=== PATIENT | male | born 1930 | race Caucasian/White ===

== ENCOUNTER 2019-03-03 02:14 | Inpatient (IN) | payer OTHER, MEDICARE ==
[~2019-03-03] VITALS: Ht 185.4 cm; Wt 94.5 kg
[2019-03-03] VITALS (32 sets, daily range): BP systolic 108–152; BP diastolic 44–71
--- NOTE | ~2019-03-03 | P ---
[facility] [address] [place] [address] PROCEDURE REPORT Name: GUILLERMO OLIVER Rosi Room #: 210-P [facility] IN M.R.#: [id number] Admission: 03/03/19 ������������������ Attend Phys: Ashish Mayer MD Discharge: 03/07/19 ������������������ Date of : [birth year] Report #: [id number] THIS REPORT FOR: //name// CC: Juan David Mayer DIAGNOSES: 1. Implantable cardioverter defibrillator elective replacement interval. 2. Admission for sustained ventricular tachycardia. 3. Ischemic cardiomyopathy. HISTORY: The patient is an 88-year-old with history of ischemic cardiomyopathy and prior ICD implantation, who presented to the Emergency Room with palpitations and was found to have a sustained ventricular tachycardia that was below his detection zone. He was cardioverted in the Emergency Room. He was admitted to the hospital and started on amiodarone therapy. Device interrogation performed demonstrates that his device is at the elective replacement interval. He is here for ICD generator exchange. ANESTHESIA: The patient underwent MAC anesthesia with no anesthesia related complications. PROCEDURE: The patient underwent informed consent. We discussed the details of the procedure including the risks, which include but not limited to bleeding, infection, and need for possible lead revisions. He understood these risks and is willing to proceed. The patient was brought to the EP laboratory in a fasting and sedated state, prepped and draped in a sterile fashion. He received IV vancomycin for antibiotic prophylaxis. Next, lidocaine was injected at the prior incision site. Incision was made. The chronic pocket was entered and the old device was disconnected from the leads and the new device was connected, tested, and found to be functioning normally. The pocket was irrigated with vancomycin solution and closed in 2 layers using 2-0 for the deep layer, 3-0 for the middle layer. Surgical glue was placed in outer skin layer. The patient awoke neurologically and hemodynamically intact. No complications. No significant bleeding. The explanted device was a Medtronic model number [id number], serial #[id number]. This device was originally implanted back on 09/23/2011. The newly implanted device was a Medtronic model #[id number], serial #[id number]. The leads were both implanted on 09/2011. The atrial lead was a Medtronic model #4076, serial #[id number], with a P-wave of 3 millivolts, pacing impedance 418 ohms and the pacing threshold 0.5 volts at 0.4 milliseconds. The RV lead was a Medtronic model #6947, serial #[id number] with R-wave of 6 millivolts, pacing impedance of 361 ohms, pacing threshold 0.5 volts at 0.4 milliseconds and stable shock impedances. His device is programmed AAIR/DDDR. The VT and VF zones were programmed to their original settings. [address] [address] PROCEDURE REPORT Name: GUILLERMO OLIVER Room #: 210-P [facility] IN .R.#: [id number] Admission: 03/03/19 ������������������ Attend Phys: Ashish Mayer MD Discharge: 03/07/19 ������������������ Date of : [birth year] Report #: [id number] CONCLUSIONS: 1. Successful ICD generator exchange. 2. Satisfactory atrial and ventricular pacing and sensing thresholds. ��������������������������������������������� ���������������������������������������� By: ��������������������������������������������� 1448 0254 Roverto Donald MD /nt
[~2019-03-03 02:14] MED LIST: ASPIRIN81 M2 PO; BENICAR HCT 201 EACH PO; CLARITIN10 M2 PO; CLARITIN10 MG PO; COZAAR 25 MG TA25 M1 PO; DOXYCYCLINE 10100 MG PO; ELIQUIS5 MG PO; FLONASE 0.05%50 MCG NASAL; FLOVENT HFA 1110 MCG INH; HYDROCODON-ACE1 EAC7; LOMOTIL TABLET1 EACH PO; LOPRESSOR100 MG PO; LOPRESSOR50 PO; MOBIC7.5 MG PO; MUCINEX TA600 MG/TA2 PO; MUCINEX600 MG PO; OSELB75 PO; PACERONE 200 M200 M1 PO; PREDNISONE 10 M10 MG PO; SINGULAIR 10 MG10 M1 PO; TYLENOL EX-STR500 M2 PO; TYLENOL325 MG PO; ZOCOR 20 MG TAB20 M1 PO
[2019-03-03] MEDS ORDERED: TYLENOL EXTRA500 MG PO (02:34)
[2019-03-03 02:42] LABS: ABSOLUTE NEUTROPHILS 5.9 thou/uL (1.4-8.2); BASOPHILS 0.7 % (0.0-2.0); EOSINOPHILS 0.8 % (0.0-3.0); HEMOGLOBIN 13.3 gm/dL (14.0-18.0); LYMPHOCYTES 18.4 % (24.0-44.0); MCH 31.1 pg (26.0-34.0); MCHC 33.4 g/dL (28.0-37.0); MCV 93.2 fL (80.0-100.0); MONOCYTES 9.7 % (1.0-8.0); PLATELET COUNT 132 thou/uL (150-400); POLYS 70.4 % (36.0-66.0); RBC 4.28 mil/uL (4.50-6.00); RDW 14.8 % (10.5-14.5); WBC 8.4 thou/uL (4.0-11.0)
[2019-03-03 02:46] LABS: CREATININE 1.8 mg/dL (0.7-1.3); POTASSIUM 4.2 mmol/L (3.5-5.1)
[2019-03-03 02:56] LABS: TROPONIN-I 0.42 ng/mL (<0.06)
[2019-03-03 08:06] LABS: CALCIUM 8.2 mg/dL (8.5-10.1); CREATININE 1.7 mg/dL (0.7-1.3); POTASSIUM 4.6 mmol/L (3.5-5.1)
[2019-03-03 08:14] LABS: TROPONIN-I 0.47 ng/mL (<0.06)
--- NOTE | 2019-03-03 16:13 | 2DMMODE ---
[facility] [address] [place] [address] 2 D/M-MODE ECHOCARDIOGRAM Name: GUILLERMO OLIVER Room #: 237-P [facility] M.R.#: [id number] ������������� Admission: 03/03/19 ������������� Attend Phys: Angelica Andrews Discharge: ��� ������������� ��� Date of : [birth year] Date of Service: 03/03/19 1613 �� Report #: [id number] �������� ��������������������������������������������[id number] THIS REPORT FOR: //name// APPROVED REPORT Study performed: 03/03/2019 09:45:42 EXAM: Comprehensive 2D, Doppler, and color-flow Echocardiogram Patient Location: Bedside Room #: 237 Status: on-call BSA: 2.20 HR: 62 bpm BP: 130/61 mmHg Rhythm: NSR Other Information Study Quality: Adequate Risk Factors: Cardiac Risk Factors: HTN Indications Pacemaker CAD Syncope Elevated Troponin Cardiomyopathy V-tach s/p cav Hx: IN 2D Dimensions IVSd: 11.82 (7-11mm) LVOT Diam: 22.00 (18-24mm) LVDd: 49.77 mm PWd: 11.54 (7-11mm) Ascending Ao: 32.22 (22-36mm) LVDs: 41.84 (25-40mm) Aortic Root: 36.65 mm LV Single Plane 4CH: 47.72 % LV Single Plane 2CH: 49.74 % Biplane EF: 48.1 % Volumes Left Atrial Volume (Systole) Single Plane 4CH: 73.76 mL Single Plane 2CH: 64.16 mL LA ESV Index: 34.00 mL/m2 [facility] [place] [address] 2 D/M-MODE ECHOCARDIOGRAM Name: GUILLERMO OLIVER Room #: 237-P [facility] .R.#: [id number] ������������� Admission: 03/03/19 ������������� Attend Phys: Angelica Andrews Discharge: ��� ������������� ��� Date of : [birth year] Date of Service: 03/03/19 1613 �� Report #: [id number] �������� ��������������������������������������������[id number] Aortic Valve AoV Peak Gregg.: 1.22 m/s AO Peak Gr.: 5.97 mmHg LVOT Max P.29 mmHg LVOT Max V: 0.91 m/s USAMA Vmax: 2.91 cm2 Mitral Valve E/A Ratio: 0.8 MV Decel. Time: 217.83 ms MV E Max Gregg.: 0.79 m/s MV A Gregg.: 0.99 m/s MV PHT: 63.17 ms IVRT: 50.75 ms TDI E/Lateral E': 9.88 E/Medial E': 13.17 Medial E' Gregg.: 0.06 m/s Lateral E' Gregg.: 0.08 m/s Pulmonary Valve PV Peak Gregg.: 1.03 m/s PV Peak Gr.: 4.27 mmHg Pulmonary Vein P Vein S: 0.59 m/s P Vein A: 0.26 m/s P Vein D: 0.58 m/s P Vein A Dur.: 90.0 msec P Vein S/D Ratio: 1.02 Tricuspid Valve RAP Estimate: 10.00 mmHg Left Ventricle The left ventricle is normal size. Mild basal inferolateral hypokinesis. Mild concentric left ventricular hypertrophy. Left ventricular systolic function is mildly decreased. LVEF is 45-50%. Mild diastolic dysfunction is present (impaired relaxation pattern). Right Ventricle The right ventricle is normal size. The right ventricular systolic function is normal. Pacemaker lead is present in the right ventricle. Atria The left atrium size is normal. Right atrium is dilated. Aortic Valve [facility] [address] [place] [address] 2 D/M-MODE ECHOCARDIOGRAM Name: GUILLERMO OLIVER Room #: 237-P [facility] .R.#: [id number] ������������� Admission: 03/03/19 ������������� Attend Phys: Angelica Andrews Discharge: ��� ������������� ��� Date of : [birth year] Date of Service: 03/03/19 1613 �� Report #: [id number] �������� ��������������������������������������������[id number] The aortic valve is normal in structure. No aortic regurgitation is present. There is no aortic valvular stenosis. Mitral Valve There is mitral annular calcification. Mild mitral regurgitation. No evidence of mitral valve stenosis. Tricuspid Valve The tricuspid valve is normal in structure. Trace tricuspid regurgitation. Unable to assess PA pressure. Pulmonic Valve The pulmonary valve is normal in structure. Mild pulmonic regurgitation. Great Vessels The aortic root is normal in size. IVC is mildly dilated and collapses >50% with inspiration. Pericardium There is no pericardial effusion. <Conclusion> The left ventricle is normal size. LVEF is 45-50%. Mild basal inferolateral hypokinesis. Pacemaker lead is present in the right ventricle. Right atrium is dilated. The right ventricle is normal size. The aortic valve is normal in structure. There is mitral annular calcification. Mild mitral regurgitation. The tricuspid valve is normal in structure. Trace tricuspid regurgitation. Unable to assess PA pressure. The pulmonary valve is normal in structure. Mild pulmonic regurgitation. There is no pericardial effusion. ��������������������������������������������� <ELECTRONICALLY SIGNED> ���������������������������������������� By: Jackson Ramos MD ��������������������������������������������� 03/03/19 1613 1613 1613 Jackson Ramos MD /INF
[2019-03-04] VITALS (10 sets, daily range): BP systolic 141–190; BP diastolic 64–88
[2019-03-04 04:59] LABS: HEMATOCRIT 37.4 % (42.0-52.0); HEMOGLOBIN 12.5 gm/dL (14.0-18.0); MCH 31.4 pg (26.0-34.0); MCHC 33.4 g/dL (28.0-37.0); MCV 93.8 fL (80.0-100.0); RBC 3.99 mil/uL (4.50-6.00); RDW 14.6 % (10.5-14.5); WBC 8.1 thou/uL (4.0-11.0)
[2019-03-04 05:11] LABS: CALCIUM 8.1 mg/dL (8.5-10.1); CREATININE 1.4 mg/dL (0.7-1.3); MAGNESIUM 1.7 mg/dL (1.8-2.4); POTASSIUM 4.4 mmol/L (3.5-5.1)
[2019-03-05] VITALS (10 sets, daily range): BP systolic 143–172; BP diastolic 77–92
--- NOTE | 2019-03-05 08:35 | EKG ---
[address] [address] ELECTROCARDIOGRAM REPORT Name: GUILLERMO OLIVER Rosi Room #: 210-P ADM IN M.R.#: [id number] ������������������ Admission: 03/03/19 ������������������ Attend Phys: Ashish Mayer MD Discharge: ������������������ Date of : [birth year] Report #: [id number] ����������������������������������������������������������������� [id number] THIS REPORT FOR: //name// [facility] ED Test Date: 2019-03-03 Test Time: 02:17:39 Pat Name: GUILLERMO OLIVER Department: Room: 210 Gender: M Floorperson: : 1930 Requested By: Sebas Borja Order Number: [id number] MD: Roverto Donald Measurements Intervals [place] Rate: 152 P: 0 MT: 117 QRS: 251 QRSD: 165 T: 60 QT: 356 QTc: 566 Interpretive Statements Wide complex tachycardia likely related to ventricular tachycardia. Compared to ECG 11/07/2016 10:11:50 Sinus rhythm no longer present First degree AV block no longer present Intraventricular conduction delay no longer present Myocardial infarct finding no longer present Electronically Signed On 03-05-2019 8:35:10 CDT by Roverto Donald [email or web address] ��������������������������������������������� <ELECTRONICALLY SIGNED> ���������������������������������������� By: Roverto Donald MD ��������������������������������������������� 03/05/19 0835 6 6 Roverto Donald MD /EPI
--- NOTE | 2019-03-05 08:36 | EKG ---
[address] [place] [address] ELECTROCARDIOGRAM REPORT Name: PANGUILLERMO CHAVEZ Room #: 210-P ADM IN M.R.#: [id number] ������������������ Admission: 03/03/19 ������������������ Attend Phys: Ashish Mayer MD Discharge: ������������������ Date of : [birth year] Report #: [id number] ����������������������������������������������������������������� [id number] THIS REPORT FOR: //name// [facility] ED Test Date: 2019-03-03 Test Time: 03:15:28 Pat Name: GUILLERMO OLIVER Department: Room: 210 Gender: M Picker Operator: GINA : 1930 Requested By: Angelica Appiah Order Number: [id number] MD: Roverto Donald Measurements Intervals [place] Rate: 61 P: 0 [place]: 222 QRS: 59 QRSD: 114 T: -88 QT: 422 QTc: 425 Interpretive Statements Sinus rhythm Prolonged [place] interval Anteroseptal infarct, old Compared to ECG 11/07/2016 10:11:50 Electronically Signed On 03-05-2019 8:35:49 CDT by Roverto Donald [email or web address] ��������������������������������������������� <ELECTRONICALLY SIGNED> ���������������������������������������� By: Roverto Donald MD ��������������������������������������������� 03/05/19 0835 Roverto Donald MD /GORDO
[2019-03-05 11:06] LABS: CALCIUM 8.9 mg/dL (8.5-10.1); CREATININE 1.3 mg/dL (0.7-1.3); POTASSIUM 4.3 mmol/L (3.5-5.1)
[2019-03-06 05:05] VITALS: BP 144/70
[2019-03-06 07:02] VITALS: BP 152/80
[2019-03-06 11:05] VITALS: BP 127/69
--- NOTE | 2019-03-06 12:01 | CATHLAB ---
[facility] [address] [place] [address] INVASIVE PROCEDURE REPORT Name: GUILLERMO OLIVER Room #: 210-P [facility] IN ..#: [id number] ������������� Admission: 03/03/19 ������������� Attend Phys: Ashish Mayer, Discharge: ��� ������������� ��� Date of : [birth year] Date of Service: 03/06/19 1201 �� Report #: [id number] �������� ��������������������������������������������[id number] THIS REPORT FOR: //name// APPROVED REPORT Study performed: 03/05/2019 11:51:05 Patient Details Patient Status: In-Patient Room #: The patient is a 88 year-old male Event Personnel Luis Rashid Artist Consultant, Odalys Garcia RN, Sondra Ruiz RN RN, Isabelle Javed Monitor, Joanie Morton CHEMICAL INSPECTOR Scrub Procedures Performed Art Access - R femoral artery* 68137 Initial Mod Sed Same Phys/QHP Gr5y 827175 Left Heart Cath w/or w/o Coronaries [id number] [facility] Aortogram Abdominal Peripheral Angio 326479 Hemostasis w/ Mynx Procedure Narrative The patient was brought urgently to the Cardiac Catheterization Laboratory and was prepped and draped in a sterile manner. The Right Groin^ was infiltrated with 1% Lidocaine subcutaneous anesthesia. A PINNACLE 6FR Sheath #[id number] sheath was inserted into the RFA^. Coronary angiography was performed using coronary diagnostic catheters. The right coronary system was accessed and visualized with a JR 4 catheter. The left coronary system was accessed and visualized with a JL 4 catheter. The left ventricle was accessed and visualized with a Pigtail catheter. Left ventriculogram was performed in DIA projection. An aortogram of the abdominal aorta was performed. Closure device was deployed with a 6 Fr Mynx. The patient tolerated the procedure well and there were no complications associated with the procedure. There was no hematoma. Intraoperative Conscious Sedation Sedation start time: 12:57 Case end Time: 13:17 Fentanyl 50 mcg Versed 1 mg Fluoro Time: 1.33 minutes Dose: DAP 3669.00 cGycm2 417 mGy Contrast Type and Amount: Visipaque [address] [address] INVASIVE PROCEDURE REPORT Name: BENITOGUILLERMO Rosi Room #: 210-P [facility]#: [id number] ������������� Admission: 03/03/19 ������������� Attend Phys: Ashish Mayer, Discharge: ��� ������������� ��� Date of : [birth year] Date of Service: 03/06/19 1201 �� Report #: [id number] �������� ��������������������������������������������[id number] Hemodynamics The aortic pressure is 173/70 mmHg with a mean of 92 mmHg. The left ventricular pressure is 174/10 mmHg with a mean of mmHg. The left ventricular end diastolic pressure is 19 mmHg. Conclusion #1 normal left ventricular size with an inferior basilar akinetic segment EF 50-55% #2 abdominal aorta intact without aneurysm mild plaquing is noted renal arteries are patent. #3 short left main giving rise to LAD and circumflex. Mild calcification #4 LAD with mild to moderate irregularities in proximal and mid vessel 30-40% extends around the apex. Collateral filling the PDA from an occluded right coronary artery #5 nondominant circumflex with mild irregularities filling the PDA also collaterally. 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 Recommendations and plan: Continue aggressive risk factor modification. No indication for coronary intervention. We'll proceed with generator placement and continue loading of amiodarone for sustained VT. ��������������������������������������������� <ELECTRONICALLY SIGNED> ���������������������������������������� By: Luis Rashid MD, FACC ��������������������������������������������� 03/06/19 1201 120 120 Luis Rashid MD, FACC /INF
[2019-03-06 16:04] VITALS: BP 124/53
[2019-03-06 20:43] VITALS: BP 125/72
[2019-03-07 04:25] LABS: HEMATOCRIT 41.3 % (42.0-52.0); HEMOGLOBIN 13.8 gm/dL (14.0-18.0); MCH 31.3 pg (26.0-34.0); MCHC 33.5 g/dL (28.0-37.0); MCV 93.3 fL (80.0-100.0); RBC 4.43 mil/uL (4.50-6.00); RDW 14.5 % (10.5-14.5)
[2019-03-07 04:34] VITALS: BP 133/65
[2019-03-07 04:38] LABS: CALCIUM 8.3 mg/dL (8.5-10.1); CREATININE 1.6 mg/dL (0.7-1.3); MAGNESIUM 1.6 mg/dL (1.8-2.4); POTASSIUM 4.1 mmol/L (3.5-5.1)
[2019-03-07 07:17] VITALS: BP 127/67
[2019-03-07 10:57] VITALS: BP 107/48
[2019-03-07] MEDS ORDERED: COZAAR 25 MG TA25 M1 PO (12:03)
[2019-03-07] MEDS ORDERED: BYSTOLIC 5 MG5 M1 PO (12:03)
[2019-03-07 12:17] VITALS: BP 107/48
[2019-03-07] MEDS ORDERED: PACERONE 200 M200 M1 PO (13:18)
== END 2019-03-07 13:20 | disposition home or self-care (01) | DRG 260 ==
LOC: ER 02:14 → 2N 04:42 → EROBS 04:42 → ICU 06:54 → 2N 03-04 07:54 → ENTRNSPT 03-07 12:38 → EDTRNSPTSTS 03-07 12:40 → 2N 03-07 13:20
PROVIDERS: Emergency Medicine; Nurse Practitioner Acute Care; Nurse Practitioner Adult Health; ADMIT Internal Medicine
DX: I47.2 Ventricular tachycardia (principal); N17.0 Acute kidney failure with tubular necrosis; I48.92 Unspecified atrial flutter; I48.0 Paroxysmal atrial fibrillation; I25.10 Atherosclerotic heart disease of native coronary artery without angina pectoris; M19.90 Unspecified osteoarthritis, unspecified site; N18.3 Chronic kidney disease, stage 3 (moderate); I12.9 Hypertensive chronic kidney disease with stage 1 through stage 4 chronic kidney disease, or unspecified chronic kidney disease; I25.5 Ischemic cardiomyopathy; I65.29 Occlusion and stenosis of unspecified carotid artery; E78.5 Hyperlipidemia, unspecified; I25.2 Old myocardial infarction; Z95.5 Presence of coronary angioplasty implant and graft; Z95.810 Presence of automatic (implantable) cardiac defibrillator; Z95.0 Presence of cardiac pacemaker; Z85.038 Personal history of other malignant neoplasm of large intestine; Z85.46 Personal history of malignant neoplasm of prostate; Z79.899 Other long term (current) drug therapy; Z88.0 Allergy status to penicillin; Z91.018 Allergy to other foods
CPT/HCPCS: 10078; 10081; 62110; 62900; 70005

== ENCOUNTER 2019-03-31 20:03 | Inpatient (IN) | payer OTHER, MEDICARE ==
[~2019-03-31] VITALS: Ht 185.4 cm; Wt 98.0 kg
[~2019-03-31 20:03] MED LIST changes: +BYSTOLIC 5 MG5 M1 PO; +TYLENOL EXTRA500 MG PO
[2019-03-31 20:08] VITALS: BP 150/76
[2019-03-31 20:33] LABS: ABSOLUTE NEUTROPHILS 8.4 thou/uL (1.4-8.2); BASOPHILS 0.3 % (0.0-2.0); HEMATOCRIT 39.8 % (42.0-52.0); HEMOGLOBIN 13.3 gm/dL (14.0-18.0); LYMPHOCYTES 3.7 % (24.0-44.0); MCH 31.5 pg (26.0-34.0); MCHC 33.5 g/dL (28.0-37.0); MCV 94.1 fL (80.0-100.0); MONOCYTES 4.7 % (1.0-8.0); PLATELET COUNT 122 thou/uL (150-400); POLYS 91.3 % (36.0-66.0); RBC 4.23 mil/uL (4.50-6.00); RDW 14.4 % (10.5-14.5); URINE BILIRUBIN NEGATIVE (Negative); URINE BLOOD 3+ (Negative); URINE CLARITY CLEAR; URINE COLOR YELLOW; URINE GLUCOSE-RANDOM* NEGATIVE (Negative); URINE KETONES TRACE (Negative); URINE LEUKOCYTES-REFLEX NEGATIVE (Negative); URINE NITRITE-REFLEX NEGATIVE (Negative); URINE PROTEIN (DIPSTICK) NEGATIVE (Negative); URINE SPECIFIC GRAVITY 1.025 (1.005-1.035); URINE UROBILINOGEN 0.2 E.U./dl (0.2-1.0); WBC 9.2 thou/uL (4.0-11.0)
[2019-03-31 20:39] LABS: CALCIUM 7.8 mg/dL (8.5-10.1); CREATININE 1.6 mg/dL (0.7-1.3); POTASSIUM 4.2 mmol/L (3.5-5.1)
[2019-03-31 20:45] LABS: ALBUMIN 3.4 g/dL (3.4-5.0); TOTAL BILIRUBIN 0.6 mg/dL (<0.1-1.0)
[2019-03-31 20:50] LABS: MUCUS 0-3 Light strn/LPF (None Seen); SQUAMOUS 4-10 Moderate /LPF (0-3); WAXY CAST 0-3 Few /LPF (None Seen)
[2019-03-31 20:51] LABS: BACTERIA-REFLEX None Seen /HPF (None Seen); CRYSTALS None Seen /LPF (None Seen); TRANSITIONAL EPITHEL CELL 0-3 Few /LPF (None Seen); URIC ACID CRYSTALS 0-3 Few /LPF (None Seen); URINE WBC-REFLEX None Seen /HPF (0-5)
[2019-03-31 20:52] LABS: URINE RBC 3-10 Few /HPF (0-2)
[2019-04-01] VITALS (7 sets, daily range): BP systolic 84–150; BP diastolic 45–76
--- NOTE | 2019-04-01 03:24 | NUR ---
patient aox3 makes needs known. patient ambulates in the room with unsteady gaits. patient denied pain or discomfort. patient needs minimum assistance with adl, bed mobility, transfer and toileting. patient in bed asleep at this time breathing regular and unlaboured.
--- NOTE | 2019-04-01 16:54 | NUR ---
Received awake on bed. On Nothing by mouth- patient instructed and aware, mouth swabs offered to pt to moisten mouth. With SL at L AC- patent. A+Ox3. On room air. With pacemaker. Ot with weakness on lower extremities- on standby to moderate assist. Pt with consult to Dr Do- pt seen and assessed by Dr Do this AM- to refer to Ricardo Rankin- consult called in thru answering service, called back and said Dr Santoyo will see pt in a while. Pt seen by Dr Marroquin as well, to ask GI re: diet. Pt had abdominal ultrasound done today, Nuclear med PIPIDA to be done tomorrow. Dr Santoyo saw pt, pt may have full liquids for now then on NPO p midnight again for PIPIDA tomorrow- orders put in and pt informed. To hold eliquis- dose held for 3 days and for possible EGD/Colonoscopy after 3 days w/o eliquis, might do as outpatient instead. Pt given full liquid diet- able to tolerate well, no episodes of nausea, vomiting or abdominal pain after eating. Meds missed from am dose since pt was on NPO given after tolerating full liquid diet. No episode of nausea, vomiting, abdominal pain the whole shift. Vital signs stable. Visited by relatives today.
--- NOTE | 2019-04-02 02:40 | NUR ---
ASSUMED CARE AROUND 1900. AXOX3. HYPOTENSION ADDRESSED TO RESUME SPECIALIST CAREER INFORMATION SPECIALIST 500CC BOLUS GIVEN. KEPT NPO FOR HEPATOPIPITA IN IN AM. NO NARCOTICS GIVEN TO PT. NO S/S ACUTE DISTRESS NOTED OR REPORTED AT THIS TIME. WILL CONT TO MONITOR FOR ANY CHANGES IN CONDITION.
[2019-04-02 03:48] VITALS: BP 119/58
--- NOTE | 2019-04-02 08:10 | EKG ---
[address] [address] ELECTROCARDIOGRAM REPORT Name: GUILLERMO OLIVER Room #: 452-P ADM IN M.R.#: [id number] ������������������ Admission: 03/31/19 ������������������ Attend Phys: Ashish Mayer MD Discharge: ������������������ Date of : [birth year] Report #: [id number] ����������������������������������������������������������������� [id number] THIS REPORT FOR: //name// [facility] ED Test Date: 2019-03-31 Test Time: 20:08:20 Pat Name: GUILLERMO OLIVER Department: Room: 452 Gender: M Receiving Clerk: SALUD : 1930 Requested By: Leobardo Burton Order Number: [id number] MD: Roverto Donald Measurements Intervals [place] Rate: 77 P: WI: 225 QRS: 40 QRSD: 124 T: -70 QT: 371 QTc: 420 Interpretive Statements Atrial-paced complexes Prolonged [place] interval Nonspecific intraventricular conduction delay Consider anterior infarct Borderline repolarization abnormality Compared to ECG 03/03/2019 03:15:28 Intraventricular conduction delay now present Sinus rhythm no longer present Myocardial infarct finding still present Electronically Signed On 04-02-2019 8:10:16 CDT by Roverto Donald [email or web address] ��������������������������������������������� <ELECTRONICALLY SIGNED> ���������������������������������������� By: Roverto Donald MD ��������������������������������������������� 04/02/19 0810 07 07 Roverto Donald MD /EPI
[2019-04-02 09:14] VITALS: BP 113/65
--- NOTE | 2019-04-02 09:40 | NUR ---
pt out of room for procedure/test. will cont following as needed for dc needs. spoke with bedside nurse reported pt live 2 story home with son living on 2nd floor and pt on 1st floor./bedside nurse.
--- NOTE | 2019-04-02 12:16 | NUR ---
TOWARDS POC PT A/O X3, VSS, AFEBRILE, DENIES PAIN. PT HAD PPIDA SCAN THIS AM. PT ON CLR DIET THIS AM. NO CONCERNS VOICED, WILL CONTINUE TO MONITOR.
[2019-04-02 15:17] VITALS: BP 120/65
[2019-04-02 20:43] VITALS: BP 139/67
[2019-04-03 03:56] VITALS: BP 115/73
--- NOTE | 2019-04-03 04:54 | NUR ---
Pt. has rested quietly at short intervals during the night when checked on during frequent rounds. He has been up to the bedside comode with assistance of one. Had bowel prep as ordered and has been stooling, but not clear yet. He offers no c/o pain.
[2019-04-03 07:36] VITALS: BP 113/62
--- NOTE | 2019-04-03 07:53 | NUR ---
0753- PT COMPLETED MAG CITRATE
--- NOTE | 2019-04-03 10:00 | NUR ---
Code blue called & changed to PUBLIC WELFARE WORKER. No loss of pulse-see PUBLIC WELFARE WORKER flowsheet
[2019-04-03 10:03] LABS: CREATININE 1.9 mg/dL (0.7-1.3); POTASSIUM 4.4 mmol/L (3.5-5.1)
[2019-04-03 10:04] LABS: CALCIUM 9.7 mg/dL (8.5-10.1)
--- NOTE | 2019-04-03 10:07 | NUR ---
0915 RN JUST GAVE PT TAP WATER ENEMA AND ASSISTED PT TO BEDSIDE COMMODE. PT WAS ON BSC AND PHONE RANG. PT ANSWERED PHONE WHILE ON COMMODE AND SPOKE TO HIS SON, PT BEGAN TO DROOL AND STATED HE DIDN'T FEEL WELL. PT THEN SLUMPED OVER AND LOST CONSCIOUSNESS. RN FELT FOR PULSE BUT WAS UNABLE TO FEEL FOR ONE WHILE PT WAS IN THAT POSITION SO CODE WAS CALLED. PT WAS ASSISTED TO BED WITH X3 ASSIST. FEMORAL PULSE WAS FELT AT THAT TIME.PT REGAINED CONSCIOUSNESS CODE CHANGED TO COMMUNITY RELATIONS MANAGER AT THIS TIME. EKG DONE, PT PLACED ON MONITOR. LABS DRAWN. STATISTICAL MACHINE SERVICER KNOWN TO PT RESPONDED AND CHECKED EKG. PT BEING TRANSFERRED TO CCU FOR TELEMETRY. SON MARY CALLED AND NOTIFIED. REPORT CALLED TO JUANCARLOS PHAN.
--- NOTE | 2019-04-03 10:46 | NUR ---
Pt transfering to CCU this am after "code" and rapid response called this morning.Pt has pacemaker. Possible vasovagel episode.Pt alert and talking with son. EGD/Colonoscopy on hold pending Cardiology/GI reviewing to determine plan of care. Insurance Solicitor visited with the pt son at bedside. He is concerned about weakness and would like to consider hh referral at or. Will check for therapy evals. No agency perference per pt's son as they have not had it before. The pt has dme in the home. Will follow. Support provided.
[2019-04-03 10:54] VITALS: BP 95/67
--- NOTE | 2019-04-03 12:50 | 2DMMODE ---
[facility] [address] [place] [address] 2 D/M-MODE ECHOCARDIOGRAM Name: GUILLERMO OLIVER Room #: 207-P [facility] IN ..#: [id number] ������������� Admission: 03/31/19 ������������� Attend Phys: Ashish Mayer, Discharge: ��� ������������� ��� Date of : [birth year] Date of Service: 04/03/19 1250 �� Report #: [id number] �������� ��������������������������������������������[id number] THIS REPORT FOR: //name// APPROVED REPORT Study performed: 04/03/2019 11:31:29 EXAM: Limited 2D, Doppler, and color-flow Echocardiogram Patient Location: Bedside Room #: [facility] Status: routine BSA: 2.20 HR: 69 bpm BP: 113/62 mmHg Rhythm: Pacemaker Other Information Study Quality: Good Indications Limited echo for LV function post vasovagal event. Cardiomyopathy. (Complete echo done 03/03/19) Hx: ISCM, stent, pacemaker, Afib, HTN, HLP. 2D Dimensions IVSd: 13.45 (7-11mm) LVDd: 54.88 mm PWd: 9.42 (7-11mm) Ascending Ao: 36.68 (22-36mm) LVDs: 47.06 (25-40mm) Aortic Root: 42.91 mm Aortic Valve AoV Peak Gregg.: 1.08 m/s AO Peak Gr.: 4.64 mmHg Tricuspid Valve TR Peak Gregg.: 1.85 m/s TR Peak Gr.: 13.74 mmHg Left Ventricle The left ventricle is normal size. Mild septal hypertrophy is present. Left ventricular systolic function is mildly decreased. LVEF is 45-50%. Right Ventricle The right ventricle is normal size. The right ventricular systolic [facility] [address] [place] [address] 2 D/M-MODE ECHOCARDIOGRAM Name: GUILLERMO OLIVER Room #: 207-P ADM IN [facility]#: [id number] ������������� Admission: 03/31/19 ������������� Attend Phys: Ashish Mayer, Discharge: ��� ������������� ��� Date of : [birth year] Date of Service: 04/03/19 1250 �� Report #: [id number] �������� ��������������������������������������������[id number] function is normal. Pacemaker lead is present in the right ventricle. Atria Left atrium is normal. Right atrium is at the upper limits of normal. Aortic Valve The aortic valve is normal in structure. No aortic regurgitation is present. There is no aortic valvular stenosis. Mitral Valve The mitral valve is normal in structure. Mild to moderate mitral regurgitation. Tricuspid Valve The tricuspid valve is normal in structure. Trace tricuspid regurgitation. Estimated PAP is 15mmHg plus the right atrial pressure. Great Vessels Aortic root is dilated at 4.3cm. IVC is not well visualized. Pericardium There is no pericardial effusion. <Conclusion> The left ventricle is normal size. LVEF is 45-50%. The right ventricular systolic function is normal. Pacemaker lead is present in the right ventricle. Left atrium is normal. Right atrium is at the upper limits of normal. The aortic valve is normal in structure. The mitral valve is normal in structure. Mild to moderate mitral regurgitation. The tricuspid valve is normal in structure. Trace tricuspid regurgitation. Estimated PAP is 15mmHg plus the right atrial pressure. Aortic root is dilated at 4.3cm. There is no pericardial effusion. ��������������������������������������������� <ELECTRONICALLY SIGNED> ���������������������������������������� By: Jackson Ramos MD ��������������������������������������������� 04/03/19 1250 1250 1250 Jackson Ramos MD /INF
--- NOTE | 2019-04-03 15:18 | NUR ---
PT TRANSFERED FROM [facility]. ALERT AND ORIENTED. VSS. A PACED ON TELE. DENIED HAVING PAIN OR DISCOMFORT. HAD EGD AND COLONOSCOPY THIS AFTERNOON. NO CARDIAC OR RESPIRATORY DISTRESS NOTED. SON AT THE BEDSIDE. WILL CONTINUE TO MONITOR.
[2019-04-03 20:10] VITALS: BP 118/69
--- NOTE | 2019-04-04 03:08 | NUR ---
PATIENT A/O X 4.DENIES PAIN AND SOB.UP WITH STANDBY ASSIST TO THE BATHROOM AND BEDSIDE COMMODE.PT STATES HE JUST WANT TO STOP HAVING BM.EXPLAINED TO HIM HE HAD EGD AND COLONOSCOPY AND POSSIBLY FROM THE PREP.WILL MONITOR AND CONTINUE POC.
[2019-04-04 04:06] LABS: ALBUMIN 3.2 g/dL (3.4-5.0); ANION GAP 7 mmol/L (7-16); BUN 16 mg/dL (7-18); CALCIUM 8.2 mg/dL (8.5-10.1); CHLORIDE 106 mmol/L (98-107); CO2 27 mmol/L (21-32); CREATININE 1.7 mg/dL (0.7-1.3); GLUCOSE 92 mg/dL (74-106); PHOSPHORUS 3.4 mg/dL (2.5-4.9); POTASSIUM 4.6 mmol/L (3.5-5.1); SODIUM 140 mmol/L (136-145); TROPONIN-I <0.06 ng/mL (<0.06)
[2019-04-04 04:45] VITALS: BP 122/61
[2019-04-04 04:46] LABS: HEMATOCRIT 38.3 % (42.0-52.0); HEMOGLOBIN 12.8 gm/dL (14.0-18.0); MCH 31.4 pg (26.0-34.0); MCHC 33.5 g/dL (28.0-37.0); MCV 93.6 fL (80.0-100.0); RBC 4.09 mil/uL (4.50-6.00); RDW 14.3 % (10.5-14.5); WBC 6.3 thou/uL (4.0-11.0)
[2019-04-04 07:24] VITALS: BP 135/68
--- NOTE | 2019-04-04 07:47 | EKG ---
[address] [place] [address] ELECTROCARDIOGRAM REPORT Name: BENITOGUILLERMO Rosi Room #: 207-P ADM IN M.R.#: [id number] ������������������ Admission: 03/31/19 ������������������ Attend Phys: Ashish Mayer MD Discharge: ������������������ Date of : [birth year] Report #: [id number] ����������������������������������������������������������������� [id number] THIS REPORT FOR: //name// [facility] Test Date: 2019-04-03 Test Time: 09:31:36 Pat Name: GUILLERMO OLIVER Department: Room: 207 Gender: M Reo Asset Manager: RYAN : 1930 Requested By: Angelica Appiah Order Number: [id number] MD: Hood Fernandez Measurements Intervals [place] Rate: 62 P: MN: 314 QRS: 51 QRSD: 130 T: -53 QT: 413 QTc: 420 Interpretive Statements Atrial-paced complexes Prolonged MN interval Nonspecific intraventricular conduction delay Nonspecific ST and T wave abnormality Baseline wander in lead(s) V6 Compared to ECG 03/31/2019 20:08:20 No significant change was found Electronically Signed On 04-04-2019 7:47:24 CDT by Hood Fernandez [email or web address] ��������������������������������������������� <ELECTRONICALLY SIGNED> ���������������������������������������� By: Hood Fernandez MD, [facility] ��������������������������������������������� 04/04/19 0747 Hood Fernandez MD, [facility] /EPI
--- NOTE | 2019-04-04 08:14 | EKG ---
[address] [address] ELECTROCARDIOGRAM REPORT Name: GUILLERMO OLIVER Room #: 207-P ADM IN M.R.#: [id number] ������������������ Admission: 03/31/19 ������������������ Attend Phys: Ashish Mayer MD Discharge: ������������������ Date of : [birth year] Report #: [id number] ����������������������������������������������������������������� [id number] THIS REPORT FOR: //name// [facility] Test Date: 2019-04-04 Test Time: 08:04:48 Pat Name: GUILLERMO OLIVER Department: Room: 207 P Gender: M Affirmative Action Specialist: RYAN : 1930 Requested By: Teagan Doss Order Number: [id number] MD: Roverto Donald Measurements Intervals [place] Rate: 65 P: 53 DE: 346 QRS: 31 QRSD: 131 T: -38 QT: 407 QTc: 424 Interpretive Statements Sinus rhythm Prolonged DE interval Nonspecific intraventricular conduction delay Nonspecific T abnormalities, inferior leads Compared to ECG 04/03/2019 09:31:36 T-wave abnormality now present Atrial-paced complex(es) or rhythm no longer present ST (T wave) deviation no longer present Electronically Signed On 04-04-2019 8:14:25 CDT by Roverto Donald [email or web address] ��������������������������������������������� <ELECTRONICALLY SIGNED> ���������������������������������������� By: Roverto Donald MD ��������������������������������������������� 04/04/19813 3 3 Roverto Donald MD /EPI
[2019-04-04 08:36] VITALS: BP 135/68
[2019-04-04 12:28] VITALS: BP 110/61
[2019-04-04 14:11] VITALS: BP 110/61
[2019-04-04 14:16] VITALS: BP 110/61
--- NOTE | 2019-04-04 14:37 | NUR ---
met with patient who is to dc today. Patient resides in independent home with son. He has worked with PT today who cleared for dc. Offered HH care but patient declines reports no interest in HH at [place]. He has casemgt number in dc instruction should he change mind. no further needs
--- NOTE | 2019-04-04 14:45 | NUR ---
PT ALERT AND ORIENTED. VSS. DENIED HAVING PIN OR DISCOMFORT. EVALUATED BY PT AND OT. ORDERS GIVEN TO DISCHARGE PT TO HOME. DISCHARGE INSTRUCTION GIVEN TO PT AND SON. PT VERBERLIZE UNDERSTANDING.
--- NOTE | 2019-04-04 17:06 | PATH ---
[facility] [address] [place] [address] PATHOLOGY RPT PROCEDURE Name: GUILLERMO OLIVER Rosi Room #: 207-P [facility] IN M.R.#: [id number] ������������������ Admission: 03/31/19 ������������������ Date of : [birth year]14/[birth year] Discharge: 04/04/19 Report #: [id number] Path Case #: [id number] [facility] Accession Number: [id number] . 01 Material submitted: . stomach - GASTRIC BIOPSY . 01 Clinical history: . Abnormal imaging of the GI tract, Hx of colon cancer . 02 Diagnosis: Gastric mucosa, gastric, endoscopic biopsy: - Moderate reactive gastropathy. - Negative for intestinal metaplasia or atrophy. - Negative for Helicobacter pylori (properly controlled immunohistochemical stain performed). (IUV/db; 04/04/2019) LBQ/04/04/2019 . 02 Electronically signed: . Kiki Chung MD, Pathologist NPI- [id number] . 01 Gross description: . Received in formalin labeled "Zaalivia, Guillermo, gastric BX," are 4 segments of del castillo soft tissue measuring 1.3 x 0.9 x 0.3 cm in aggregate dimensions and ranging from 0.4 to 0.6 cm in maximum dimension. The specimen is submitted entirely in cassette A1. (TSD; 04/03/2019) TOB/TOB . 02 Pathologist provided ICD-10: K31.9 . 02 CPT . 474174, A62843 Specimen Comment: A courtesy copy of this report has been sent to Specimen Comment: [phone], , . Specimen Comment: Report sent to ,DR RAMIREZ / DR PEREA Performed at: [address], [place] [id number] MD Tirso Alexander MD Phone: [phone] Performed at: [address] [place] [address] [id number] MD Kiki Chung MD Phone: [phone]
--- NOTE | 2019-04-06 10:41 | NUR ---
CALL RECEIVED FROM PATIENTS SON, MARY. STATES PATIENT IS INTERESTED IN HOME HEALTH SERVICES. CALL PLACED TO MARY, CONTACT NUMBER [phone] PROVIDED ON VOICE MAIL. UNABLE TO CONTACT MARY. VOICE MAIL LEFT FOR MARY WITH CM CONTACT NUMBER.
== END 2019-04-04 14:57 | disposition home or self-care (01) | DRG 388 ==
LOC: ER 20:03 → 4W 23:58 → EROBS 23:58 → 4W 04-01 00:38 → 2N 04-03 10:42 → ENTRNSPT 04-04 14:42 → EDTRNSPTSTS 04-04 14:44 → 2N 04-04 14:57
PROVIDERS: Emergency Medicine; Hospitalist; ADMIT Internal Medicine
DX: K56.600 Partial intestinal obstruction, unspecified as to cause (principal); N17.0 Acute kidney failure with tubular necrosis; I13.0 Hypertensive heart and chronic kidney disease with heart failure and stage 1 through stage 4 chronic kidney disease, or unspecified chronic kidney disease; I47.2 Ventricular tachycardia; N17.9 Acute kidney failure, unspecified; I50.22 Chronic systolic (congestive) heart failure; K29.70 Gastritis, unspecified, without bleeding; I48.2 Chronic atrial fibrillation; I25.5 Ischemic cardiomyopathy; I25.10 Atherosclerotic heart disease of native coronary artery without angina pectoris; N18.3 Chronic kidney disease, stage 3 (moderate); E78.5 Hyperlipidemia, unspecified; I65.29 Occlusion and stenosis of unspecified carotid artery; K44.9 Diaphragmatic hernia without obstruction or gangrene; I08.1 Rheumatic disorders of both mitral and tricuspid valves; E86.9 Volume depletion, unspecified; K80.20 Calculus of gallbladder without cholecystitis without obstruction; M19.90 Unspecified osteoarthritis, unspecified site; Z85.46 Personal history of malignant neoplasm of prostate; Z85.038 Personal history of other malignant neoplasm of large intestine; I25.2 Old myocardial infarction; Z98.42 Cataract extraction status, left eye; Z98.41 Cataract extraction status, right eye; Z95.810 Presence of automatic (implantable) cardiac defibrillator; Z90.49 Acquired absence of other specified parts of digestive tract; Z95.5 Presence of coronary angioplasty implant and graft; Z87.891 Personal history of nicotine dependence; Z79.01 Long term (current) use of anticoagulants; Z79.51 Long term (current) use of inhaled steroids; Z79.899 Other long term (current) drug therapy; Z88.0 Allergy status to penicillin; Z91.018 Allergy to other foods; Z82.49 Family history of ischemic heart disease and other diseases of the circulatory system; E78.00 Pure hypercholesterolemia, unspecified; I48.0 Paroxysmal atrial fibrillation; K57.30 Diverticulosis of large intestine without perforation or abscess without bleeding
CPT/HCPCS: 10040; 10081; 62110; 62900; 70005

== ENCOUNTER 2019-05-08 16:30 | Inpatient (IN) | payer OTHER, MEDICARE ==
[~2019-05-08] VITALS: Ht 182.9 cm; Wt 90.1 kg
[2019-05-08 16:30] VITALS: BP 138/76
[2019-05-08 16:54] LABS: ABSOLUTE NEUTROPHILS 6.5 thou/uL (1.4-8.2); BASOPHILS 0.6 % (0.0-2.0); EOSINOPHILS 0.2 % (0.0-3.0); HEMATOCRIT 39.3 % (42.0-52.0); HEMOGLOBIN 13.1 gm/dL (14.0-18.0); LYMPHOCYTES 6.5 % (24.0-44.0); MCH 31.2 pg (26.0-34.0); MCHC 33.5 g/dL (28.0-37.0); MCV 93.3 fL (80.0-100.0); MONOCYTES 5.3 % (1.0-8.0); PLATELET COUNT 144 thou/uL (150-400); POLYS 87.4 % (36.0-66.0); RBC 4.21 mil/uL (4.50-6.00); RDW 14.7 % (10.5-14.5); WBC 7.4 thou/uL (4.0-11.0)
[2019-05-08 16:57] LABS: ANION GAP 10 mmol/L (7-16); BUN 22 mg/dL (7-18); CALCIUM 8.6 mg/dL (8.5-10.1); CHLORIDE 104 mmol/L (98-107); CO2 22 mmol/L (21-32); CREATININE 1.7 mg/dL (0.7-1.3); GLUCOSE 128 mg/dL (74-106); POTASSIUM 4.3 mmol/L (3.5-5.1); SODIUM 136 mmol/L (136-145)
[2019-05-08 17:08] LABS: ALBUMIN 3.6 g/dL (3.4-5.0); LIPASE 63 U/L (73-393); SGOT 24 U/L (15-37); SGPT 26 U/L (30-65); TOTAL BILIRUBIN 0.8 mg/dL (<0.1-1.0); TOTAL PROTEIN 6.3 g/dL (6.4-8.2); TROPONIN-I <0.06 ng/mL (<0.06)
[2019-05-08 19:00] LABS: URINE BILIRUBIN NEGATIVE (Negative); URINE BLOOD 3+ (Negative); URINE CLARITY CLEAR; URINE COLOR YELLOW; URINE GLUCOSE-RANDOM* NEGATIVE (Negative); URINE KETONES 1+ (Negative); URINE LEUKOCYTES-REFLEX NEGATIVE (Negative); URINE NITRITE-REFLEX NEGATIVE (Negative); URINE PROTEIN (DIPSTICK) NEGATIVE (Negative); URINE UROBILINOGEN 0.2 E.U./dl (0.2-1.0)
[2019-05-08 19:07] LABS: BACTERIA-REFLEX None Seen /HPF (None Seen); CRYSTALS None Seen /LPF (None Seen); SQUAMOUS None Seen /LPF (0-3); URINE RBC 3-10 Few /HPF (0-2); URINE WBC-REFLEX None Seen /HPF (0-5)
[2019-05-08 20:24] VITALS: BP 109/59
[2019-05-08 21:13] VITALS: BP 128/61
[2019-05-08] MEDS ORDERED: LOPERAMIDE 2 MG2 M1 PO (21:57)
--- NOTE | 2019-05-08 23:02 | NUR ---
Pt admitted from ED @ 2100 accompanied by staff and son. A/OX4,oriented to room and unit,admission paperwork signed. Pt denies pain on assessment just feeling bloated. No N/V. Pt reports he uses a walker at home,RW provided. Fall safety education provided and fall precautions implemented. VSS.Resting without any discomfort at this time,will continue to monitor pt.
[2019-05-08] MEDS ORDERED: PACERONE400 MG PO (23:31)
[2019-05-09 04:45] VITALS: BP 118/44
--- NOTE | 2019-05-09 07:51 | EKG ---
[place] [address] [facility] [employer] [place] [address] ELECTROCARDIOGRAM REPORT Name: GUILLERMO OLIVER Room #: 460-P ADM IN M.R.#: [id number] Admission: 05/08/19 Attend Phys: Ashish Mayer MD Discharge: Date of : [birth year] Report #: [id number] THIS REPORT FOR: //name// [facility] ED Test Date: 2019-05-08 Test Time: 16:36:41 Pat Name: GUILLERMO OLIVER Department: Room: [facility] Gender: M Spa Receptionist: : 1930 Requested By: Eugene Munoz Order Number: [id number] MD: Hood Fernandez Measurements Intervals [place] Rate: 63 P: 73 GA: 282 QRS: 57 QRSD: 191 T: -52 QT: 409 QTc: 419 Interpretive Statements Sinus rhythm Prolonged GA interval and atrial pacing Nonspecific intraventricular conduction delay Nonspecific ST and T wave abnormality Compared to ECG 04/04/2019 08:04:48 No significant change was found Electronically Signed On 05-09-2019 7:51:02 CDT by Hood Fernandez [email or web address] <ELECTRONICALLY SIGNED> By: Hood Fernandez MD, [facility] 05/09/19 0751 1636 1636 Hood Fernandez MD, [facility] /EPI
[2019-05-09 08:37] VITALS: BP 114/48
[2019-05-09 10:57] LABS: HEMATOCRIT 35.2 % (42.0-52.0); HEMOGLOBIN 11.8 gm/dL (14.0-18.0); MCH 31.5 pg (26.0-34.0); MCHC 33.5 g/dL (28.0-37.0); MCV 94.1 fL (80.0-100.0); RBC 3.74 mil/uL (4.50-6.00); RDW 14.7 % (10.5-14.5); WBC 6.3 thou/uL (4.0-11.0)
[2019-05-09 11:08] LABS: CALCIUM 8.4 mg/dL (8.5-10.1); CREATININE 1.5 mg/dL (0.7-1.3); MAGNESIUM 1.8 mg/dL (1.8-2.4); POTASSIUM 3.9 mmol/L (3.5-5.1)
[2019-05-09 15:45] VITALS: BP 121/59
--- NOTE | 2019-05-09 16:21 | NUR ---
PT ADMITTED RELATED TO NAUSEA,VOMITING,DIARRHEA.ABD PAIN. CM REVIEWED CHART AND SPOKE WITH CARE TEAM. CM MET WITH PT AT BEDSIDE THIS DAY. PT IS A&O X4. CM ROLE INTRRODUCED. PT INIDCATED HE LIVES IN A HOUSE WITH HIS SON WITH 7 STEPS TO ENTER AND 7 STEPS INSIDE. PT INDICATED HE HAD BEEN USING A FWW TO ASSIST WITH MOBILITY. PT INDICATED NO HH OR SKILLED HX. PT INDICATED HE PLANS TO RETURN HOME ONCE MEDICALLY STABLE. CM TO FOLLOW INDICATED WITH DC PLANNING.
--- NOTE | 2019-05-09 19:31 | NUR ---
PT ALERT AND ORIENETD TIMES FOUR. VSS, PT DENIES PAIN/SOA. PT UP WITH STAND BY ASSIST. PT TOLERATES MEDS AND CLEAR LIQUID DIET. PT SLOWLY PROGRESSING TOWRADS POC GOALS.
[2019-05-09 21:28] VITALS: BP 153/63
[2019-05-10 05:16] LABS: HEMATOCRIT 35.7 % (42.0-52.0); MCH 31.7 pg (26.0-34.0); MCHC 33.6 g/dL (28.0-37.0); MCV 94.5 fL (80.0-100.0); RBC 3.77 mil/uL (4.50-6.00); RDW 14.6 % (10.5-14.5); WBC 5.8 thou/uL (4.0-11.0)
[2019-05-10 05:20] VITALS: BP 145/60
[2019-05-10 05:28] LABS: CALCIUM 8.3 mg/dL (8.5-10.1); CREATININE 1.6 mg/dL (0.7-1.3); MAGNESIUM 1.7 mg/dL (1.8-2.4); POTASSIUM 4.6 mmol/L (3.5-5.1)
[2019-05-10 08:02] VITALS: BP 126/83
--- NOTE | 2019-05-10 08:12 | NUR ---
Assumed pt care at 1900. Pt wanted something to eat,informed he was on a clear liquid diet still and had questions on POC, contacted at 2100 and ordered US of the gallbladder and a diet order however he declined eating then stating it was already too late. Informed he was required to be NPO after midnight and agreeable with it. Pt has been having diarrhea at night,stool samples obtained and sent to lab.On special contact isolation awaiting c-diff results. Fall precautions in place.
--- NOTE | 2019-05-10 11:32 | NUR ---
ORDER REC'D FOR OT EVAL AND TREAT. EVAL INITIATED W/INTERVIEW AND DEMONSTRATION OF MOBILITY AND SELFCARE. PATIENT STATES THAT HE IS INDEPENDENT AT HOME AND DOES NOT FEEL THAT HE WILL NEED OCCUPATIONAL THERAPY. WILL DISCHARGE FROM OT AFTER THIS SCREENING.
[2019-05-10 13:30] VITALS: BP 106/88
--- NOTE | 2019-05-10 17:42 | NUR ---
PT ALERT AND ORIENTED TIMES FOUR. VSS, PT DENIES PAIN/SOA/N/V/D. PT TOLERATES MEDS AND DINNER. PT UP WITH STANDBY ASSIST. FAMILY AT BEDSIDE FOR SOME PART OF THE SHIFT. PT PROGRESSING TOWARDS POC GOALS.
[2019-05-10 20:51] VITALS: BP 113/57
--- NOTE | 2019-05-11 03:53 | NUR ---
ASSUMED CARE OF PT AT 1900HRS. PT IS AOX4 AND CALLS FOR HELP NEEDED. FALL PRECAUTION IN PLACE. PT WAS NPO FROM [place] FOR A POSSIBLE PROCEDURE IN THE AM. PT DID NOT REPORT ANY PAIN OR NAUSEA THIS SHIFT. VSS AND NO S/S OF ACUTE DISTRESAS. WILL CONTINUE TO MONITOR.
--- NOTE | 2019-05-11 14:57 | NUR ---
CARE TEAM INDICATED THAT PT IS TO HAVE A LAP LAYNE EITHER THIS AFTERNOON OR TOMRRROW. CM TO FOLLOW INIDCATED WITH DC PLANNING.
[2019-05-11 16:17] VITALS: BP 135/65
[2019-05-11 19:39] VITALS: BP 103/46
--- NOTE | 2019-05-11 20:01 | NUR ---
ASSUMED CARE OF PATIENT AT 0715, PATIENT ALERT AND ORIENTED X 4. PATIENT UP WITH SBA TO BSC. PATIENT WAS NPO MOST OF THE DAY DUE TO POSSIBLE SURGERY. DR VEGA HERE THIS AM, WILL DO POSSIBLE SURGERY GALL BLADDER REMOVAL. FAMILY HERE AT BEDSIDE MOST OF THE DAY. THIS RN CALLED DR VEGA IN REGARD TO PATIENT AND FAMILY WANTING TO KNOW IF SURGERY WILL BE DONE TO DAY, DR SILVIA MENON HE WILL CALL BACK ABOUT 1600. RECEIVED CALL BACK FROM DR VEGA, UNABLE TO DO SURGERY TODAY, WILL DO TOMORROW AT 0930. PATIENT REFUSED TO SIGN CONSETN UNTIL HE SPOKE TO THE DOCTOR AGAIN WITH EXPLANATION OF SURGERY TO BE PERFORMED. DINNER TRAY ORDERED FOR PATIENT. WILL BE NPO AFTER MIDNIGHT. PATIENT HAD IV LEFT AV, NOT PATENT, IV ATTEMPTED X 2, IV TEAM CALL, NEW IV LEFT FOREARM. NO C/O PAIN OR NAUSEA THIS SHIFT. WILL CONTINUE TO MONITOR.
[2019-05-12] VITALS (9 sets, daily range): BP systolic 122–1434; BP diastolic 49–65
--- NOTE | 2019-05-12 06:32 | NUR ---
PATIENT ALERT AND ORIENTED X4. HAS BEEN NPO SINCE 2358 ON 05/11/19 FOR AM PROCEDURE. NO C/O DIARRHEA. COOPERATIVE WITH CARE. PATIENT STATES THAT HE WOULD LIKE TO SPEAK WITH THE DOCTOR BEFORE SIGNING HIS CONSENT, PLACED ON FRONT OF CHART. RESTING QUIETLY. DENIES PAIN DURING THE NIGHT. WILL MONITOR.
--- NOTE | 2019-05-12 11:26 | HC ---
[facility] [address] [place] [address] CONSULTATION Name: GUILLERMO OLIVER Rosi Room #: 460-P [facility] IN M.R.#: [id number] Admission: 05/08/19 Attend Phys: Ashish Mayer MD Discharge: Date of : [birth year] Report #: [id number] THIS REPORT FOR: //name// CC: Juan David Mayer DATE OF SERVICE: 05/09/2019 CONSULTING PHYSICIAN: Dr. Julito Marshall. REASON FOR CONSULTATION: Cholelithiasis. ASSESSMENT: 1. Cholelithiasis. 2. Abdominal pain secondary to bowel distention, perhaps related to enteritis. 3. Atrial fibrillation, on Eliquis. 4. Coronary artery disease, status post 3 stents. 5. Acute kidney injury versus chronic kidney disease. 6. History of ventricular tachycardia. RECOMMENDATIONS: 1. Thank you for the consultation. We will follow along. 2. Can consider laparoscopic cholecystectomy for cholelithiasis. This does not need to be done on an emergent or semi-urgent basis. If patient wishes for laparoscopic cholecystectomy this hospitalization, we will need to hold his Eliquis and consult Cardiology for clearance. 3. Symptoms seem to be more consistent with ileus or enteritis versus symptomatic cholelithiasis. HISTORY OF PRESENT ILLNESS: This is a very pleasant 88-year-old gentleman who presents to the hospital with abdominal pain, vomiting, diarrhea. The patient reports that yesterday after eating breakfast, he began having abdominal pain. The abdominal pain was in his periumbilical region on both sides. He cannot characterize the pain and says it is more of a feeling of illness than pain. It has since improved. He endorses vomiting at about 3:00 p.m. He presented to the ER at 5:30 and had diarrhea on the way and multiple times after arrival. The patient underwent a CT scan that was concerning for enteritis. He was admitted. Gastroenterology and General Surgery were consulted. The patient had similar symptoms approximately 5 weeks ago for which he was hospitalized. He underwent an ultrasound and a HIDA scan where he was found to have gallstones and an ejection fraction of 68%. PAST MEDICAL HISTORY: 1. Atrial fibrillation. 2. History of ventricular tachycardia. [facility] [address] [place] [address] CONSULTATION Name: GUILLERMO OLIVER Room #: 460-P [facility] IN [facility]#: [id number] Admission: 05/08/19 Attend Phys: Ashish Mayer MD Discharge: Date of : [birth year] Report #: [id number] 3. Coronary artery disease with 3 occluded stents per the patient, last placed in 2001. 4. History of colon cancer, status post partial colectomy. 5. Hypertension. 6. Hyperlipidemia. PAST SURGICAL HISTORY: 1. Appendectomy. 2. Partial colectomy. 3. Pacemaker or defibrillator. 4. Colonoscopy and EGD. SOCIAL HISTORY: Denies use of alcohol or tobacco. He lives with his son. FAMILY HISTORY: Denies coagulopathy. REVIEW OF SYSTEMS: CONSTITUTIONAL: No fever. No chills. HEENT: Denies blurring of vision, double vision, headaches, hearing loss, sinus drainage or sore throat. Denies blurring of vision, double vision, headaches, hearing loss, sinus drainage or sore throat. CARDIOVASCULAR: See above and below. RESPIRATORY: Denies cough, wheezing, hemoptysis, or shortness of air. GASTROINTESTINAL: See above and below. GENITOURINARY: Denies dysuria or hematuria or kidney stones. No urinary frequency, urgency or incontinence. Denies dysuria or hematuria or kidney stones. No urinary frequency, urgency or incontinence. MUSCULOSKELETAL: No joint pain. No muscle pain. NEUROLOGICAL: Denies tremor, stroke or seizure. Denies tremor, stroke or seizure. HEMATOLOGIC / LYMPHATICS: Denies easy bruising, easy bleeding or enlarged lymph nodes. SKIN: No rash or ulceration. ENDOCRINE: No heat or cold intolerance PSYCHIATRIC: Denies depression, anxiety, or schizophrenia. PHYSICAL EXAMINATION: VITAL SIGNS: Temperature 36.7, pulse 60, respiratory rate 14, blood pressure 120/60, pulse ox is 96% on room air. GENERAL: No apparent distress, alert and oriented x3. HEENT: PERRLA, EOMI, MMM, NCAT. NECK: Supple. No LAD. CARDIOVASCULAR: Regular rhythm and rate. Hemodynamically stable. Normal capillary refill. Regular rhythm and rate. Hemodynamically stable. Normal capillary refill. PULMONARY: Nonlabored. Clear to auscultation bilaterally. [address] [address] CONSULTATION Name: GUILLERMO OLIVER Rosi Room #: 460-P [facility] IN M.R.#: [id number] Admission: 05/08/19 Attend Phys: Ashish Mayer MD Discharge: Date of : [birth year] Report #: [id number] ABDOMEN: Soft, mild tenderness to palpation in the periumbilical region. No guarding, no rebound, no rigidity. EXTREMITIES: Calves soft, nontender, no edema. SKIN: No rashes or bruises. PSYCHIATRIC: Normal mood and affect Normal mood and affect. NEUROLOGICAL: Grossly intact. CN II-XII grossly intact. MUSCULOSKELETAL: 5/5 strength in upper extremities and lower extremities bilaterally LYMPHATICS: No cervical, inguinal, or supraclavicular lymphadenopathy Insert template. LABORATORY DATA: White blood count 6.3, hemoglobin 11.8, hematocrit 35.2, platelets 133. Sodium 140, potassium 3.9, creatinine 1.5, calcium 8.4, magnesium 1.8, total bilirubin 0.8, ALT is 26, AST is 24, alkaline phosphatase 116. Troponin 0.06. Lipase 63. Abdominal pelvis CT scan: Impression: 1. Fluid filled small and large bowel consistent with manifestations of enteritis and diarrhea. No evidence of obstruction. Thank you for the consultation. Please do not hesitate to contact with any questions. <ELECTRONICALLY SIGNED> By: Julito Marshall MD 05/12/19 1126 1725 0015 Julito Marshall MD /nt
--- NOTE | 2019-05-12 19:47 | NUR ---
Assumed pt care this am received NPO for scheduled lap diaz, w/ possible open and possible cholangiogram. Pt refused to sign consent for surgery and wanted his surgeon to come and explain prior to him signing anything. Informed Dr. Marshall, pt was taken down OR performed. Pt returned to the floor past lunch, ice chip to clear liquid and progressed to a regualr diet is well tolerated. Pain was verbalized, p[ain medication given to manage the pain. 4 lap sites with dermabond, dry and intact. POC followed, no signs of distress have been noted.
--- NOTE | 2019-05-13 01:36 | NUR ---
ASSUMED CARE AROUND 1900. AXOX3. S/P LAP LAYNE. LAP SITES CDI. CARE TRANSFERRED TO ANOTHER RN AT 2300. NO S/S ACUTE DISTRESS NOTED OR REPORTED UPON TRANSFER OF CARE.
[2019-05-13 04:10] VITALS: BP 113/59
--- NOTE | 2019-05-13 04:48 | NUR ---
PATIENT ALERT AND ORIENTED X4. DENIES PAIN. 4 SMALL INCISIONS ON ABD, INTACT WITH DERMABOND. STILL NOT PASSING FLATUS. SLEPT MOST OF NIGHT. WORKING TOWARDS POC.
[2019-05-13 08:00] VITALS: BP 125/63
[2019-05-13 10:07] LABS: HEMATOCRIT 38.4 % (42.0-52.0); HEMOGLOBIN 12.8 gm/dL (14.0-18.0); MCH 31.3 pg (26.0-34.0); MCHC 33.3 g/dL (28.0-37.0); MCV 93.9 fL (80.0-100.0); RBC 4.09 mil/uL (4.50-6.00); RDW 14.3 % (10.5-14.5); WBC 11.2 thou/uL (4.0-11.0)
[2019-05-13 10:18] LABS: CALCIUM 8.9 mg/dL (8.5-10.1); CREATININE 1.6 mg/dL (0.7-1.3); MAGNESIUM 1.7 mg/dL (1.8-2.4)
[2019-05-13 15:00] VITALS: BP 138/66
[2019-05-13 19:37] VITALS: BP 117/47
--- NOTE | 2019-05-13 19:41 | NUR ---
ASSUMED CARE OF PATIENT AT 0715, PATIENT ALERT AND ORIENTED X 4. PATIENT UP SBA TO BSC, AND AMBULATED TO TOILET X 1 TODAY. NO DIARRHEA THIS SHIFT. PATIENT HAS 4 LAP SITES, C/D/I WITH DERMABOND. PATIENT DENIES PAIN THIS AM, BUT C/O PAIN WITH BILATERAL SHOULDERS, TYLENOL 2 TABS GIVEN, WITH COMPLETE RELIEF. PATIENT HAS LEFT FOREARM IV IN PLACE, RECEIVED 1 IV ANTIBIOTIC THIS SHIFT. IV ANTIBIOTIC DISCONTINUED. WILL CONTINUE TO MONITOR.
--- NOTE | 2019-05-14 04:33 | NUR ---
PATIENT IS ALERT AND ORIENTED X4. COOPERATIVE WITH CARE. DENIES PAIN. USING URINAL AND CALLS OUT APPROPRIATELY. SLEEPING WELL THROUGHOUT THE NIGHT. WILL MONITOR.
[2019-05-14 05:51] LABS: HEMATOCRIT 38.5 % (42.0-52.0); MCH 31.5 pg (26.0-34.0); MCHC 33.7 g/dL (28.0-37.0); MCV 93.7 fL (80.0-100.0); RBC 4.11 mil/uL (4.50-6.00); RDW 14.6 % (10.5-14.5); WBC 9.1 thou/uL (4.0-11.0)
[2019-05-14 06:03] LABS: CALCIUM 8.9 mg/dL (8.5-10.1); CREATININE 1.7 mg/dL (0.7-1.3); MAGNESIUM 1.7 mg/dL (1.8-2.4)
[2019-05-14 10:00] VITALS: BP 119/60
[2019-05-14 16:27] VITALS: BP 96/47
--- NOTE | 2019-05-14 16:53 | NUR ---
CM SPOKE WITH PT THIS AM AND HE INDIATED THAT HE WAS INTERESTED IN POST ACUTE CARE STAY. CM INDICATED THAT PT WOULD NEED TO WORK WITH PT AND OT TO DETERMINE IF PT QUALIFIED. OT REORDERED. 5N CONSULT ORDERED. AWAITING DETERMINATION. CM ALSO PROVIDED SNF LIST FOR PT TO REVIEW IF BACKUP NEEDED. CM TO FOLLOW INDICATED WITH DC PLANNING.
[2019-05-14 19:34] VITALS: BP 91/50
--- NOTE | 2019-05-14 20:11 | NUR ---
QUIET UNEVENTFUL DAY. DENIED PAIN. LAP SITES LOOK GOOD. PASSING A LITTLE FLATUS. NO BM. SAT UP IN CHAIR FOR SEVERAL HOURS. AMBULATED IN [place] A LITTLE BIT. BECAME TIRED QUICKLY. FALL PRECAUTIONS IN PLACE. TOLERATING REGULAR DIET. HOPING TO GO TO 5N REHAB TOMORROW.
--- NOTE | 2019-05-15 03:38 | NUR ---
PATIENT AOX4 MAKES NEEDS KNOWN.PATIENT CALM AND COOPERATIVE WITH MEDS AND CARE. PATIENT 4 LAP SITES ARE C/D/I. PATIENT DENIED PAIN OR DISCOMFORT. PATIENT IN BED ASLEEP AT THIS TIME BREATHING REGULAR AND UNLABOURED.
[2019-05-15 04:12] VITALS: BP 120/68
[2019-05-15 07:34] VITALS: BP 123/57
--- NOTE | 2019-05-15 14:29 | NUR ---
dp sent referral to [facility], will call to make sure they receive faxed referral
[2019-05-15 14:38] VITALS: BP 106/56
--- NOTE | 2019-05-15 17:18 | NUR ---
CM MET WITH PT AT BEDSIDE THIS DAY AND INDICATED THAT PT ISN'T APPROPRIATE FOR 5N. HE ASKED THAT REFERRAL BE SENT [facility]. THEY WILL HAVE 2 BEDS TOMORROW. ANTICIPATE DC TOMORROW. CM TO FOLLOW INDICATED WITH DC PLANNING.
--- NOTE | 2019-05-15 19:00 | NUR ---
ACUTE REHAB WAS AWAITING THERAPY INFORMATION FOR DETERMINATION ON ACUTE REHAB APPROPRIATENESS. IT WAS DETERMINED THAT PATIENT IS MORE APPROPRIATE FOR A SKILLED SETTING FOR REHAB. GAS APPLIANCE SERVICER INFORMED. THANK YOU FOR THIS REFERRAL.
--- NOTE | 2019-05-15 19:06 | PATH ---
[facility] [address] [place] [address] PATHOLOGY RPT PROCEDURE Name: GUILLERMO OLIVER Room #: 460-P [facility] IN .R.#: [id number] Admission: 05/08/19 Date of : [birth year] Discharge: Report #: [id number] Path Case #: [id number] [facility] Accession Number: [id number] . 01 Material submitted: . gallbladder - GALLBLADER . 01 Clinical history: . Acute cholecystitis . 02 Diagnosis: Gallbladder, cholecystectomy: - Acute and chronic cholecystitis. - Cholelithiasis. . (SKM:cyril; 05/15/2019) [facility]/05/15/2019 . 02 Electronically signed: . Dhruv Delgado MD, Pathologist NPI- [id number] . 01 Gross description: . The specimen is received in formalin, labeled "Campos Zans, gallbladder". Received is an intact gallbladder measuring 8.5 x 4.2 x 2.5 cm in greatest dimensions displaying a del castillo-quan serosal surface. Opening the specimen reveals a velvety and light del castillo to light brown mucosa with a gallbladder wall thickness of 0.1 cm. There are multiple raised polyp-type lesions on the mucosa measuring 0.1 cm, predominantly located within the mid aspect and fundus of the gallbladder. Calculi are present displaying a light del castillo and friable appearance, and no masses or lesions are noted grossly. [place] sections, to include the proximal margin, are submitted in cassette A1. Additional brewery representative cross-sections of the mucosa with attached polyp-type lesions are submitted in cassette A2. (CAA; 05/14/2019) QAC/QAC . 02 Pathologist provided ICD-10: K80.12 . 02 CPT . 154887 Specimen Comment: A courtesy copy of this report has been sent to Specimen Comment: [phone], . Specimen Comment: Report sent to / DR RAMIREZ Performed at: 01 [place] [address] PATHOLOGY RPT PROCEDURE Name: GUILLERMO OLIVER Room #: 460-P [facility] IN ..#: [id number] Admission: 05/08/19 Date of : [birth year] Discharge: Report #: [id number] Path Case #: [id number] [facility] [place] [address] [place] [address] [address], [id number] MD Tirso Alexander MD Phone: [phone] Performed at: [address] [id number] MD Kiki Chung MD Phone: [phone]
--- NOTE | 2019-05-15 20:03 | NUR ---
Assumed pt care this am, was able to work with PT and OT but did not do well when walking up the stairs. Lap sites are dry, intact and free from infection. Pt did not verbalize and or show signs of distress and pain. No BM as of this shift though flatus has been noted by the pt. POC followed VS signs stable. Awaiting placement.
[2019-05-15 20:06] VITALS: BP 104/60
--- NOTE | 2019-05-16 03:22 | NUR ---
ASSUMED CARE AROUND 1900. AXOX4. [facility] SITES CDI. NO S/S ACUTE DISTRESS NOTED REPORTED AT THIS TIME. WILL CONT TO MONITOR FOR ANY CHANGES IN CONDITION.
[2019-05-16 07:21] VITALS: BP 116/55
[2019-05-16 08:25] VITALS: BP 116/55
--- NOTE | 2019-05-16 10:33 | NUR ---
michelet sent updates and progress notes to Susan at [facility], and let Susan know to expect them. Patient ready to dc today if [place] can take, michelet let Susan know.
--- NOTE | 2019-05-16 21:20 | NUR ---
Received awake on bed. Due medications given as prescribed, able to swallow tablets w/o difficulty. A+Ox4. On room air. On regular diet- pt able to tolerate meals, no nausea, no vomiting and nausea noted after meals. Up with 1 using gait belt and walker, able to use bedside commode. With SL at L FA- intact and flushing well. Pt s/p lap diaz, surgical sites noted C/D/I with dermabond, no signs and symptoms of infection noted. Vital signs stable. Pt seen by Dr Marroquin- pending discharge ordered once SNF bed is available- CM aware. Pt visited by his son today. CM- pt to be discharged to [facility], transport set up between [id number]. Discharge instructions, follow up schedule, chart copy sent to facility via transport staff. IV discontinued. Report given to staff Shyla of [facility]. Discharge orders put in behalf of Dr Marroquin as per charge nurse's advice since physician order pending discharge this AM.
== END 2019-05-16 16:00 | DRG 417 ==
LOC: ER 16:30 → EROBS 20:02 → 4W 20:02
PROVIDERS: Emergency Medicine; ADMIT Internal Medicine
PROC: 0FT44ZZ Resection of Gallbladder, Percutaneous Endoscopic Approach (ICD-10-PCS; principal; 2019-05-12)
DX: K80.00 Calculus of gallbladder with acute cholecystitis without obstruction (principal); E43 Unspecified severe protein-calorie malnutrition; N18.4 Chronic kidney disease, stage 4 (severe); N17.9 Acute kidney failure, unspecified; K52.9 Noninfective gastroenteritis and colitis, unspecified; M19.90 Unspecified osteoarthritis, unspecified site; I25.5 Ischemic cardiomyopathy; I25.10 Atherosclerotic heart disease of native coronary artery without angina pectoris; K63.89 Other specified diseases of intestine; I48.2 Chronic atrial fibrillation; E83.42 Hypomagnesemia; I12.9 Hypertensive chronic kidney disease with stage 1 through stage 4 chronic kidney disease, or unspecified chronic kidney disease; G72.89 Other specified myopathies; K57.90 Diverticulosis of intestine, part unspecified, without perforation or abscess without bleeding; E78.5 Hyperlipidemia, unspecified; Z90.49 Acquired absence of other specified parts of digestive tract; Z82.49 Family history of ischemic heart disease and other diseases of the circulatory system; Z87.891 Personal history of nicotine dependence; Z95.0 Presence of cardiac pacemaker; Z95.5 Presence of coronary angioplasty implant and graft; I25.2 Old myocardial infarction; Z98.49 Cataract extraction status, unspecified eye; Z85.038 Personal history of other malignant neoplasm of large intestine; Z85.46 Personal history of malignant neoplasm of prostate; Z88.0 Allergy status to penicillin; Z79.899 Other long term (current) drug therapy
CPT/HCPCS: 10040; 50101; 50411; 50555; 50558; 51474; 51489; 52265; 52266; 53307; 53310; 53312; 54022; 54118; 55245; 56462; 56525; 56526; 62110; 62900; 70005

== ENCOUNTER → 2019-06-21 | Outpatient (CLI) | payer OTHER, MEDICARE ==
[~2019-06-21] VITALS: Ht 182.9 cm; Wt 88.5 kg
[~2019-06-21] MED LIST changes: +ASPERCREME76.5 GM TOP; +HYDROCODON-ACE1 EAC7 PO; +LOPERAMIDE 2 MG2 M1 PO; +MUCINEX DM ER1 EAC1 PO
--- NOTE | ~2019-06-21 | HPC ---
[facility] [address] [place] [address] PAIN MANAGEMENT CONSULTATION Name: GUILLERMO OLIVER [id number] Admission: 06/21/19 ������������������ Attend Phys: Guillermo Barraza MD Discharge: ������������������ Date of : [birth year] Report #: [id number] THIS REPORT FOR: //name// CC: Juan David Barraza DATE OF SERVICE: 06/21/2019 CHIEF COMPLAINT: Low back pain. HISTORY OF PRESENT ILLNESS: The patient is a pleasant 88-year-old here today with his son. He scores his pain as an 8-9 in his right low back with radiation into the hip. It is worse with bending over or standing at sink and improved by sitting or lying down. He has had no falls. He describes his pain as periodic, cramping, aching, shooting, crushing, pulling, and stabbing. Pain drawing shows mostly across the lumbosacral segment but radiating into the hips as well. He has had no pain clinic visits. No chiropractic treatments. He has had some kind of physiotherapy with limited improvement. MEDICATIONS: Amiodarone, simvastatin, Eliquis, montelukast, fluticasone, Bystolic, losartan, meloxicam. ALLERGIES: PENICILLIN. 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 He complained of hypertension, coronary artery disease with stents and history of gastritis. He denies constipation. REVIEW OF SYSTEMS: Positive for fatigue, weakness, blurred vision, hearing loss, heart troubles, dyspnea on exertion, dyspnea lying flat, change of appetite, frequent bowel movements and diarrhea, chronic nocturia and kidney stones. He complains of some tremors and memory loss. PHYSICAL EXAMINATION: VITAL SIGNS: He is 6 feet tall, 195 pounds, BMI of 26.4, blood pressure 119/86, heart rate 80, respirations 16. Pain intensity is 9/10. He needs help standing or walking and uses a walker. He has not fallen in 3 months and would be considered a fall risk. HEENT: Normal. Pupils are equal, round, reactive to light. EOMs are intact. NECK: Supple. CHEST: Clear. CARDIAC: Rhythm is regular. There is a defibrillator in place. [address] [address] PAIN MANAGEMENT CONSULTATION Name: BENITOGUILLERMO Rosi Room #: REG [facility]#: [id number] Admission: 06/21/19 ������������������ Attend Phys: Guillermo Barraza MD Discharge: ������������������ Date of : [birth year] Report #: [id number] ABDOMEN: Soft. MUSCULOSKELETAL: Examination of the spine reveals tenderness with reduced range of motion consistent with age. There is some radiation into the hips with bilateral straight leg raising. There is no radiating down into the leg. There are no x-rays to review at this time. IMPRESSION: Low back pain with some bilateral hip radicular symptoms. There is minimal sacroiliac joint tenderness. He has had sacroiliac injections with no improvement. I would recommend a trial of a facet injection. Potential risks and benefits were discussed. He will need to go off his anticoagulation therapy. We will see him back in the pain clinic for the injection sometime in the next 1-2 weeks. He was scheduled. We discussed medication at 88 years old. He probably should not take nonsteroidal anti-inflammatory drugs with a history of kidney issues and coronary artery disease. Low dose hydrocodone was offered. He has been quite miserable. Both he and his son were given a long discussion about the use of opioids under terms of written agreement and the CDC guidelines. A trial of medication of just 20 hydrocodone 5/325 mg tablets was provided with instructions to try one half tablet, increasing it one to see how the medication affects him. Because of his previous colon surgery, constipation should not be an issue. Cognitive side effects, certainly a risk and he will observe for those. He should be careful to avoid fall. Followup visit planned for the injection. We discussed medication therapy in 1-2 weeks. ��������������������������������������������� ���������������������������������������� By: ��������������������������������������������� [id number] Guillermo Barraza MD /tesfaye
[2019-06-21 14:35] VITALS: BP 115/86
--- NOTE | 2019-06-21 14:56 | NUR ---
Pain Clinic Assessment: 1. History of Osteoarthritis: SHOULDERS SPINE HIPS History of Rheumatoid Arthritis: NO 2. Height: 6 ft. 0 in. 182.9 cm. Weight: 195.0 lb. oz. 88.452 kg. Patient's BMI: 26.4 3. Vital Signs: BP: 115/86 Pulse: 80 Resp: 16 Temp: 02 Sat: 97 ECG Mon: 4. Pain Intensity: 8-9 5. Fall Risk: Dizziness: N Needs help standing or walking: Y Fallen in the last 3 months: N Fall risk comments: 6. Patient on Blood Thinner: MARNIEQUIS 7. History of Hypertension: Y 8. Opioid Therapy greater than 6 weeks: N Opiate Contract Signed: 9. Risk Assessment Tool Provided: 10. Functional Assessment Tool: 11. Recreational Drug Use: Never Drug Type: Tobacco Use: Never Smoker Tobacco Type: Amount or Packs/day: How Many Years: Alcohol Use: No Frequency: Quant:
== END ==
LOC: PAIN 06:59
DX: M54.5 Low back pain (principal); Z88.0 Allergy status to penicillin; Z79.899 Other long term (current) drug therapy

== ENCOUNTER → 2019-07-16 | Outpatient (CLI) | payer OTHER, MEDICARE ==
[~2019-07-16] VITALS: Ht 182.9 cm; Wt 87.6 kg
[~2019-07-16] MED LIST changes: +AMIODARONE HCL400 MG PO; +INDERAL60 MG PO; +ONDANSETRON HCL4 M2 PO
--- NOTE | ~2019-07-16 | HPC ---
[facility] [address] [place] [address] PAIN MANAGEMENT CONSULTATION Name: GUILLERMO OLIVER Room #: REG [facility] Eusebio.#: [id number] Admission: 07/16/19 Attend Phys: Guillermo Barraza MD Discharge: Date of : [birth year] Report #: [id number] THIS REPORT FOR: //name// CC: Juan David Barraza DATE OF SERVICE: 07/16/2019 Followup visit for sacroiliac joint injection. The patient returns to pain clinic today complaining of pain primarily over sacroiliac joint. This is a spondylosis. He is more focal in his pain today than he was in his previous visit. At that time, he had pain across the lumbosacral segment, pain along the facet joints. Today, the pain radiates lower along the sacroiliac joint and is tender. The sacroiliac joint tenderness, which was minimal before, seems more prominent and I believe that his sacroiliac joint is the likely pain generator at this time. We discussed the sacroiliac joint injection for lumbar spondylosis. He would like to proceed today with injection. PQRS REVIEW: 1. History of diffuse osteoarthritis involving shoulders, spine and hips. 2. BMI is 26.2. 3. Vital signs: Blood pressure 140/70, heart rate 73, respirations 14. 4. Pain intensity 8-9/10. 5. Fall risk, yes. He needs to use a walker and has some dizziness. 6. He is on the blood thinner, Eliquis, discontinued for 3 days in anticipation of injection. 7. History of hypertension, under treatment by Dr. Romero. All medications reviewed and reconciled. 8. No use of high-dose opioids, but he does have hydrocodone, which I provided him at last visit and we found that quite helpful. I have agreed to repeat the prescription for 30 tablets, 5 mg 1 tablet as needed daily for severe episodes. 9. Risk assessment tool has been completed and the score is low for addiction at 88. 10. Functional assessment score 30/70. 11. Denies use of tobacco and alcohol. IMPRESSION: Lumbar spondylosis with sacroiliac joint pain. PLAN: Proceed today with sacroiliac injection under fluoroscopic guidance, right sacroiliac joint. [address] [address] PAIN MANAGEMENT CONSULTATION Name: GUILLERMO OLIVER [id number] Admission: 07/16/19 Attend Phys: Guillermo Barraza MD Discharge: Date of : [birth year] Report #: [id number] PROCEDURE: He was taken to fluoroscopic suite, placed prone, skin prepped with ChloraPrep. Skin anesthetized over the sacroiliac joint on the right. Carefully advanced the needle in the posterior inferior capsule. Repositioning was necessary to obtain an arthrogram. A 0.25 mL of Omnipaque was injected to demonstrate an arthrogram followed by 2 mL of 0.25% bupivacaine mixed with 40 mg of triamcinolone. He tolerated the procedure well. There were no complications. I plan to follow up in the recovery room and then discharge. Follow up as needed in the pain clinic for further injections. May consider facet arthropathy, as we did on the first visit, as a possible cause for his pain. Procedure and results discussed with the patient and his son. By: [id number] Guillermo Barraza MD /nt
[2019-07-16 13:42] VITALS: BP 140/72
--- NOTE | 2019-07-16 14:04 | NUR ---
Pain Clinic Assessment: 1. History of Osteoarthritis: SHOULDERS SPINE HIPS History of Rheumatoid Arthritis: NO 2. Height: 6 ft. 0 in. 182.9 cm. Weight: 193.2 lb. oz. 87.635 kg. Patient's BMI: 26.2 3. Vital Signs: BP: 140/72 Pulse: 73 Resp: 14 Temp: 02 Sat: 96 ECG Mon: 4. Pain Intensity: 8-9 5. Fall Risk: Dizziness: Y Needs help standing or walking: Y Fallen in the last 3 months: N Fall risk comments: 6. Patient on Blood Thinner: EDUARDOIS 7. History of Hypertension: Y 8. Opioid Therapy greater than 6 weeks: N Opiate Contract Signed: 9. Risk Assessment Tool Provided: 10. Functional Assessment Tool: 11. Recreational Drug Use: Never Drug Type: Tobacco Use: Never Smoker Tobacco Type: Amount or Packs/day: How Many Years: Alcohol Use: No Frequency: Quant:
== END | disposition home or self-care (01) ==
LOC: PAIN 07-02 06:56
DX: M53.3 Sacrococcygeal disorders, not elsewhere classified (principal); M47.896 Other spondylosis, lumbar region; G89.29 Other chronic pain; I10 Essential (primary) hypertension; Z79.01 Long term (current) use of anticoagulants; Z79.899 Other long term (current) drug therapy; Z79.891 Long term (current) use of opiate analgesic; Z88.0 Allergy status to penicillin

== ENCOUNTER 2019-07-26 20:07 | Emergency (ER) | payer OTHER, MEDICARE ==
[~2019-07-26] VITALS: Ht 182.9 cm; Wt 87.1 kg
--- NOTE | ~2019-07-26 | EMS ---
[facility] [address] [place] [address] EMS Patient Care Report Name: GUILLERMO OLIVER Room #: DEP ADRIEL Scanlon#: [id number] Admission: 07/26/19 Attend Phys: Discharge: 07/27/19 Date of : [birth year] Report #: [id number] THIS REPORT FOR: //name// Report Transmitted: 08/07/2019 12:03 EMS Care Summary [facility] Incident [id number] @ 07/26/2019 19:08 Incident Location [address] [place] [address] Patient GUILLERMO OLIVER Male, 88 Years 1930 Patient Address [address] [place] [address] Patient History Cardiac - Stent,Atrial Fibrillation, Patient Allergies Penicillin allergy, Patient Medications Fluticasone, Simvastatin, Eliquis, Amiodarone, Chief Complaint Dizziness, N/V, Loose Stool Disposition Transported No Lights/Gem Transported To [facility] Narrative Medic 3 was dispatched to a residence in regard to a 88 y/o male c/o Dizziness, N/V, and Loose Stool x 1 Hour. Medic 3 arrived on scene to find the patient sitting on his toilet. The patient stated that he had eaten dinner about an hour ago. After dinner he began to gradually feel worse. The patient advised that he had a Hx of Chronic A-Fib and had a Pacemaker/D-Fib. The patient also stated that they had recently increased his daily intake of Amiodarone from 400mg to 800mg. Vitals were WNL. 3-Lead ECG showed a Paced Rhythm. BGL was [facility] [address] [place] [address] EMS Patient Care Report Name: GUILLERMO OLIVER Room #: DEP [facility].#: [id number] Admission: 07/26/19 Attend Phys: Discharge: 07/27/19 Date of : [birth year] Report #: [id number] 134. IV access was obtained and 4mg of Zofran was administered with a 100mL Fluid Bolus. Blood was drawn for the LAB. The patient soon felt relief of his symptoms. The patient was kept in a position of comfort and monitored throughout transport. Medic 3 arrived at [facility] and care was transferred to the nurse. Initial Vitals @19:34P: 91,R: 16,BP: 147/89,Pain: 0/10,GCS: 15,Glucose: 136,SpO2: 95,Revised Trauma: 12,3-Lead ECG: Paced RhythmMI Suspected: false @19:49P: 94,R: 14,BP: 155/118,Pain: 0/10,GCS: 15,EtCO2: 6,SpO2: 98,Revised Trauma: 12,3-Lead ECG: Paced RhythmMI Suspected: false @19:45P: 98,R: 18,Pain: 0/10,GCS: 15,SpO2: 97,3-Lead ECG: Paced RhythmMI Suspected: false @19:55P: 71,R: 16,BP: 139/88,Pain: 0/10,GCS: 15,CO: 7,EtCO2: 5,SpO2: 97,Revised Trauma: 12,3-Lead ECG: Paced RhythmMI Suspected: false Assessments @19:43MENTAL:No Abnormalities,SKIN:No Abnormalities,HEENT:Head/Face: No Abnormalities,Eyes: No Abnormalities,Neck/Airway: No Abnormalities,LUNG SOUNDS:General: No Abnormalities,Left Upper: No Abnormalities,Right Upper: No Abnormalities,Left Lower: No Abnormalities,Right Lower: No Abnormalities,ABDOMEN:General: No Abnormalities,Left Upper: No Abnormalities,Right Upper: No Abnormalities,Left Lower: No Abnormalities,Right Lower: No Abnormalities,PELVIS//GI:No Abnormalities,EXTREMITIES:Left Arm: No Abnormalities,Right Arm: No Abnormalities,Left Leg: No Abnormalities,Right Leg: No Abnormalities,PULSE:NEURO:No Abnormalities,@19:54MENTAL:No Abnormalities,SKIN:No Abnormalities,HEENT:Head/Face: No Abnormalities,Eyes: No Abnormalities,Neck/Airway: No Abnormalities,LUNG SOUNDS:General: No Abnormalities,Left Upper: No Abnormalities,Right Upper: No Abnormalities,Left Lower: No Abnormalities,Right Lower: No Abnormalities,ABDOMEN:General: No Abnormalities,Left Upper: No Abnormalities,Right Upper: No Abnormalities,Left Lower: No Abnormalities,Right Lower: No Abnormalities,PELVIS//GI:No Abnormalities,EXTREMITIES:Left Arm: No Abnormalities,Right Arm: No Abnormalities,Left Leg: No Abnormalities,Right Leg: No Abnormalities,PULSE:NEURO:No Abnormalities, Impression Generalized Weakness Procedures @19:42ALS AssessmentResponse: UnchangedSucceeded@19:52Normal Saline (.9% NaCl) 100cc (20 ga) Site: Antecubital-LeftResponse: UnchangedSucceeded@19:53Zofran - 4 Milligrams (mg) - Intravenous (IV)Response: Improved@19:36Oxygen FlowRate: 2 Device: CO2 Nasal Cannula Response: UnchangedSucceeded Timeline [facility] [address] [place] [address] EMS Patient Care Report Name: GUILLERMO OLIVER Room #: DEP [facility].#: [id number] Admission: 07/26/19 Attend Phys: Discharge: 07/27/19 Date of : [birth year] Report #: [id number] 19:07,Call Received 19:07,Psap Call 19:08,Dispatched 19:10,En Route 19:18,On Scene 19:21,At Patient 19:34,BP: 147/89 M,PULSE: 91,RR: 16 R,SPO2: 95 Ox,ETCO2: ,B,PAIN: 0,GCS: 15, 19:36,Oxygen FlowRate: 2 Device: CO2 Nasal Cannula Response: UnchangedSucceeded, 19:39,Depart Scene 19:42,ALS Assessment,Response: UnchangedSucceeded, 19:45,BP: / M,PULSE: 98,RR: 18 R,SPO2: 97 Ox,ETCO2: ,BG: ,PAIN: 0,GCS: 15, 19:49,BP: 155/118 M,PULSE: 94,RR: 14 R,SPO2: 98 Ox,ETCO2: 6 ,BG: ,PAIN: 0,GCS: 15, 19:52,Normal Saline (.9% NaCl) 100cc 20 ga Site: Antecubital-Left,Response: UnchangedSucceeded, 19:53,Zofran - 4 Milligrams (mg) - Intravenous (IV),Response: Improved 19:55,BP: 139/88 M,PULSE: 71,RR: 16 R,SPO2: 97 Ox,ETCO2: 5 ,BG: ,PAIN: 0,GCS: 15, 20:01,At Destination 20:43,Call Closed Disclaimer v1.1 Copyright 2019 [employer] This EMS Care Summary contains data elements from the applicable legal record (which may be displayed differently). It is designed to provide pertinent information for the following purposes: continuity of care, clinical quality, and state data reporting. The complete legal record is available to ED staff and administrators of the receiving hospital in [facility]'s Patient Tracker. All data is provided "as is."
[~2019-07-26 20:07] MED LIST changes: -AMIODARONE HCL400 MG PO; -INDERAL60 MG PO; -ONDANSETRON HCL4 M2 PO
[2019-07-26 20:33] LABS: ABSOLUTE NEUTROPHILS 13.1 thou/uL (1.4-8.2); BASOPHILS 0.6 % (0.0-2.0); EOSINOPHILS 0.6 % (0.0-3.0); HEMATOCRIT 39.5 % (42.0-52.0); HEMOGLOBIN 13.2 gm/dL (14.0-18.0); LYMPHOCYTES 9.2 % (24.0-44.0); MCH 31.4 pg (26.0-34.0); MCHC 33.3 g/dL (28.0-37.0); MCV 94.3 fL (80.0-100.0); MONOCYTES 6.5 % (1.0-8.0); PLATELET COUNT 218 thou/uL (150-400); POLYS 83.1 % (36.0-66.0); RBC 4.19 mil/uL (4.50-6.00); RDW 15.1 % (10.5-14.5); WBC 15.8 thou/uL (4.0-11.0)
[2019-07-26 21:02] LABS: ANION GAP 8 mmol/L (7-16); BUN 27 mg/dL (7-18); CHLORIDE 105 mmol/L (98-107); CO2 25 mmol/L (21-32); CREATININE 1.6 mg/dL (0.7-1.3); GLUCOSE 147 mg/dL (74-106); POTASSIUM 4.5 mmol/L (3.5-5.1); SODIUM 138 mmol/L (136-145)
[2019-07-26] MEDS ORDERED: AMIODARONE HCL400 MG PO (21:10)
[2019-07-26 21:11] LABS: ALBUMIN 3.2 g/dL (3.4-5.0); DIRECT BILIRUBIN 0.1 mg/dL (<0.1-0.3); LIPASE 95 U/L (73-393); SGOT 31 U/L (15-37); SGPT 32 U/L (30-65); TOTAL BILIRUBIN 0.5 mg/dL (<0.1-1.0); TROPONIN-I <0.06 ng/mL (<0.06)
[2019-07-26] MEDS ORDERED: INDERAL60 MG PO (21:11)
[2019-07-26 22:47] LABS: URINE BILIRUBIN NEGATIVE (Negative); URINE BLOOD TRACE (Negative); URINE CLARITY CLEAR; URINE COLOR YELLOW; URINE GLUCOSE-RANDOM* NEGATIVE (Negative); URINE KETONES NEGATIVE (Negative); URINE LEUKOCYTES-REFLEX NEGATIVE (Negative); URINE NITRITE-REFLEX NEGATIVE (Negative); URINE PROTEIN (DIPSTICK) NEGATIVE (Negative); URINE UROBILINOGEN 0.2 E.U./dl (0.2-1.0)
[2019-07-26] MEDS ORDERED: ONDANSETRON HCL4 M2 PO ×2 (23:16→23:35)
[2019-07-27 03:09] VITALS: BP 114/95
--- NOTE | 2019-07-27 08:48 | EKG ---
[place] [address] [address] [facility] [facility] [place] [address] ELECTROCARDIOGRAM REPORT Name: GUILLERMO OLIVER Room #: [facility] Ghislaine#: [id number] Admission: 07/26/19 Attend Phys: Discharge: 07/27/19 Date of : [birth year] Report #: [id number] THIS REPORT FOR: //name// [facility] ED Test Date: 2019-07-26 Test Time: 20:37:15 Pat Name: GUILLERMO OLIVER Department: Room: Gender: M Solutions Architect Consultant: WG : 1930 Requested By: Alphonso Wheeler Order Number: [id number] MD: Hood Fernandez Measurements Intervals [place] Rate: 61 P: CO: 37 QRS: 35 QRSD: 131 T: -25 QT: 444 QTc: 448 Interpretive Statements Atrial-paced complexes Nonspecific intraventricular conduction delay Compared to ECG 05/08/2019 16:36:41 No significant change was found Electronically Signed On 07-27-2019 8:47:55 CDT by Hood Fernandez [email or web address] <ELECTRONICALLY SIGNED> By: Hood Fernandez MD, [facility] 07/27/19 0847 2037 36 Hood Fernandez MD, FACC /EPI
== END 2019-07-27 03:10 | disposition short-term general hospital (02) ==
LOC: ER 20:07
PROVIDERS: Nurse Practitioner
DX: N20.2 Calculus of kidney with calculus of ureter (principal); R53.1 Weakness; Z90.49 Acquired absence of other specified parts of digestive tract; Z95.810 Presence of automatic (implantable) cardiac defibrillator; Z88.0 Allergy status to penicillin; Z91.018 Allergy to other foods

== ENCOUNTER → 2019-09-03 | Outpatient (CLI) | payer OTHER, MEDICARE ==
[~2019-09-03] VITALS: Ht 185.4 cm; Wt 81.1 kg
[~2019-09-03] MED LIST changes: +AMIODARONE HCL400 MG PO; +INDERAL60 MG PO; +ONDANSETRON HCL4 M2 PO
[2019-09-03 14:51] VITALS: BP 141/78
--- NOTE | 2019-09-03 15:08 | NUR ---
Pain Clinic Assessment: 1. History of Osteoarthritis: SHOULDERS SPINE HIPS History of Rheumatoid Arthritis: NO 2. Height: 6 ft. 1 in. 185.4 cm. Weight: 178.8 lb. oz. 81.103 kg. Patient's BMI: 23.6 3. Vital Signs: BP: 141/78 Pulse: 64 Resp: 14 Temp: 02 Sat: 100 ECG Mon: 4. Pain Intensity: 8 5. Fall Risk: Dizziness: Y Needs help standing or walking: Y Fallen in the last 3 months: N Fall risk comments: 6. Patient on Blood Thinner: ELIQUIS 7. History of Hypertension: Y 8. Opioid Therapy greater than 6 weeks: Y Opiate Contract Signed: 9. Risk Assessment Tool Provided: 3-LOW 10. Functional Assessment Tool: 11. Recreational Drug Use: Never Drug Type: Tobacco Use: Never Smoker Tobacco Type: Amount or Packs/day: How Many Years: Alcohol Use: No Frequency: Quant:
== END | disposition home or self-care (01) ==
LOC: PAIN 07:02
DX: M53.3 Sacrococcygeal disorders, not elsewhere classified (principal); Z79.899 Other long term (current) drug therapy; Z88.8 Allergy status to other drugs, medicaments and biological substances; Z88.0 Allergy status to penicillin

== ENCOUNTER → 2019-10-11 | Outpatient (CLI) | payer OTHER, MEDICARE ==
[~2019-10-11] VITALS: Ht 185.4 cm; Wt 80.6 kg
[~2019-10-11] MED LIST changes: +QUESTRAN PACKET4 GM PO
--- NOTE | ~2019-10-11 | HPC ---
[facility] [address] [place] [address] PAIN MANAGEMENT CONSULTATION Name: GUILLERMO OLIVER Room #: REG CL MAlpa.#: [id number] Admission: 10/11/19 Attend Phys: Guillermo Barraza MD Discharge: Date of : [birth year] Report #: [id number] THIS REPORT FOR: //name// CC: Juan David Barraza DATE OF SERVICE: 10/11/2019 REASON FOR VISIT: Followup visit for low back pain with radiation into the right hip. SUBJECTIVE: The patient returns to pain clinic today for 1 final injection effort. We have tried to inject his sacroiliac joint which seems to be the pain generator, but he has had a little improvement now at 2 separate injections. I have discussed the possibility of an epidural injection. This could be some element of lumbar spondylosis with radiculopathy and we have had patients responding nicely to epidural injections without classic signs of distant radiating radicular nerve pain. I provided hydrocodone for him. He has a longstanding issue with loose stools and diarrhea. The hydrocodone was actually helpful and provided salutary reductions in his stool. He is cautious with it, safeguards it, takes no more than 2 tablets per day. He would like to continue on it, and I have agreed to provide it for him under terms of written opioid agreement. We discussed the opioid crisis in the [place]. At his age of 89, the likelihood that he will develop addictive behaviors is small. He may become dependent on it, however. If he takes it for the rest of his life and it is beneficial, improves his daily function and he safeguards it carefully without side effects, I see no reason why he cannot use it as a medicine. He has tried other things and any drug at his age proposes some potential risks. PQRS review is unchanged from prior visit. He was most recently seen just some days ago. All medications were reviewed and reconciled. PHYSICAL EXAMINATION: GENERAL: He is a pleasant, sharp 89-year-old. VITAL SIGNS: Blood pressure 115/69, heart rate 71, respirations 16, O2 sat is 97 on room air. His BMI is 23.4. MUSCULOSKELETAL: He moves independently from sitting to standing position, but needs to use a walker. He has balance issues. He can walk a short distance. I had him stand for about 2 minutes today in the clinic and, of course, it did not cause pain today, but that is usually his position of pain. Pain typically radiates into the hip. He has minimal tenderness today across the lumbosacral [address] [address] PAIN MANAGEMENT CONSULTATION Name: GUILLERMO OLIVER [facility] [id number] Admission: 10/11/19 Attend Phys: Guillermo Barraza MD Discharge: Date of : [birth year] Report #: [id number] segment of the sacroiliac joint. He has pretty good range of motion with the lumbar spine without exacerbating pain. Straight leg raising is negative. Sensation is normal. IMPRESSION: Low back pain with spondylosis and mild symptoms of lumbar radiculopathy into the right hip. PROCEDURE: Epidural steroid injection under fluoroscopic guidance. After informed consent, he was taken to the fluoroscopic suite, placed prone, skin prepped with ChloraPrep. Skin was anesthetized over the L4-L5 interspace to the right of midline. A 20-gauge Tuohy epidural needle advanced in first attempt in the epidural space with loss of resistance. There was no blood nor CSF aspirated. A 1 mL of Omnipaque was injected with excellent spread of dye observed in the epidural space, followed by 3 mL of 0.5% lidocaine mixed with 60 mg of triamcinolone. He tolerated the procedure well, was observed for 45 minutes and discharged. He should renew his blood thinners tomorrow. Followup visit planned on as needed basis depending on response to injection. Two months of prescriptions for hydrocodone 5/325, #60, were provided, released 1 month apart. His MME with this will be 10. He will carefully safeguard his medication. By: [id number] Guillermo Barraza MD /nt
[2019-10-11 11:07] VITALS: BP 115/69
--- NOTE | 2019-10-11 11:27 | NUR ---
Pain Clinic Assessment: 1. History of Osteoarthritis: SHOULDERS SPINE HIPS History of Rheumatoid Arthritis: NO 2. Height: 6 ft. 1 in. 185.4 cm. Weight: 177.6 lb. oz. 80.559 kg. Patient's BMI: 23.4 3. Vital Signs: BP: 115/69 Pulse: 71 Resp: 16 Temp: 02 Sat: 97 ECG Mon: 4. Pain Intensity: 7 5. Fall Risk: Dizziness: N Needs help standing or walking: Y Fallen in the last 3 months: N Fall risk comments: 6. Patient on Blood Thinner: MARNIEQUIS 7. History of Hypertension: Y 8. Opioid Therapy greater than 6 weeks: Y Opiate Contract Signed: 9. Risk Assessment Tool Provided: 3-LOW 10. Functional Assessment Tool: 11. Recreational Drug Use: Never Drug Type: Tobacco Use: Never Smoker Tobacco Type: Amount or Packs/day: How Many Years: Alcohol Use: No Frequency: Quant:
== END | disposition home or self-care (01) ==
LOC: PAIN 06:43
DX: M47.26 Other spondylosis with radiculopathy, lumbar region (principal); G89.29 Other chronic pain; Z79.891 Long term (current) use of opiate analgesic; Z79.899 Other long term (current) drug therapy; Z98.890 Other specified postprocedural states; Z87.442 Personal history of urinary calculi; Z88.0 Allergy status to penicillin; Z79.01 Long term (current) use of anticoagulants

== ENCOUNTER → 2019-12-06 | Outpatient (CLI) | payer OTHER, MEDICARE ==
[~2019-12-06] VITALS: Ht 182.9 cm; Wt 83.0 kg
[2019-12-06 12:30] VITALS: BP 127/70
--- NOTE | 2019-12-06 12:31 | NUR ---
Pain Clinic Assessment: 1. History of Osteoarthritis: SHOULDERS SPINE HIPS History of Rheumatoid Arthritis: NO 2. Height: 6 ft. 0 in. 182.9 cm. Weight: 183.0 lb. oz. 83.008 kg. Patient's BMI: 24.8 3. Vital Signs: BP: 127/70 Pulse: 72 Resp: 16 Temp: 02 Sat: 99 ECG Mon: 4. Pain Intensity: 7 5. Fall Risk: Dizziness: N Needs help standing or walking: N Fallen in the last 3 months: N Fall risk comments: 6. Patient on Blood Thinner: ELIQUIS 7. History of Hypertension: Y 8. Opioid Therapy greater than 6 weeks: Y Opiate Contract Signed: 9. Risk Assessment Tool Provided: 3-LOW 10. Functional Assessment Tool: 11. Recreational Drug Use: Never Drug Type: Tobacco Use: Never Smoker Tobacco Type: Amount or Packs/day: How Many Years: Alcohol Use: No Frequency: Quant:
--- NOTE | 2019-12-06 15:24 | HPC ---
[facility] [address] [place] [address] PAIN MANAGEMENT CONSULTATION Name: GUILLERMO OLIVER Room #: REG [facility] M.R.#: [id number] Admission: 12/06/19 Attend Phys: Barbie Chávez Discharge: Date of : [birth year] Report #: [id number] THIS REPORT FOR: cc: Juan David Romero MD, Eric K. MD Hocker,Barbie LOCO ~ DATE OF SERVICE: 12/06/2019 CHIEF COMPLAINT: Low back pain, radiation to his right hip. HISTORY OF PRESENT ILLNESS: This is a very pleasant 89-year-old gentleman who is here today with his son for refills of medication. The patient reports that the previous injection that Dr. Barraza performed on him in October was not effective in controlling his pain. He reports he had no pain relief at all. He reports to me that the sacroiliac joint injections gave him a couple of days relief, but nothing more substantial than that. He does report he has had to increase his hydrocodone up to 3 tablets a day, taking it at 4 in the morning and noon time and then at bedtime. He finds this medication has been beneficial in controlling some of his pain. Today, he is rating it at a 7/10 again in his lower back that radiates towards his right hip with no leg involvement. It is a heavy intermittent tender feeling, worse with standing or walking. He feels that the medication and lying down as well as sitting have been beneficial. He does have some constipation issues, but manages this with Questran medication from his compliance auditor. Today, he is requesting a script for hydrocodone for 90 tablets instead of 60. ALLERGIES: PENICILLIN. CURRENT MEDICATIONS: Hydrocodone 5/325 p.r.n., Questran, Zofran, Inderal, amiodarone, Aspercreme, Tylenol Extra Strength, Mucinex, Claritin, Flovent, Singulair, Eliquis, and Zocor. PQRS: 1. 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 Denies any rheumatoid arthritis. 2. Height is 6 feet, weight is 183, BMI is 24. 3. Vital signs 127/70, pulse is 72, respirations 16, oxygen sat is 99. Pain score 7/10. He denies any dizziness. Does use a walker for ambulation, but has not fallen in the last 3 months. The patient does take Eliquis as well as hypertension medicines. His opioid therapy is greater than 6 weeks. Risk assessment tool is low. Functional assessment is 30/70. 4. Recreational drug use, he denies. He is not a smoker and does not drink alcohol. According to the prescription monitoring system, the patient is filling his [facility] [address] [place] [address] PAIN MANAGEMENT CONSULTATION Name: GUILLERMO OLIVER Room #: REG CLGregorio Scanlon#: [id number] Admission: 12/06/19 Attend Phys: Barbie Chávez Discharge: Date of : 08/[birth year] Report #: [id number] medications in a timely fashion. Last filled his medicines 11/04/2019. According to the CDC guidelines, his current morphine mEq is 10. He is requesting an increase of 1 pill, which will take him to 15. PHYSICAL EXAMINATION: GENERAL: This is alert and orientated, pleasant 89-year-old gentleman who is reporting his pain score today at 7/10. HEENT: Normocephalic, atraumatic. Extraocular eye muscles are intact. MUSCULOSKELETAL: He uses a walker at all times and was independently from the sitting to standing position. He has pain in his axial low back, with radicular pain into his right hip, tenderness in his lumbosacral region and over his right sacroiliac joint. Straight leg raising is negative. His lower extremities strength is 5/5 with good sensation. IMPRESSION: 1. Low back pain with spondylosis. 2. Lumbar radiculopathy into the right hip. 3. Anticoagulation therapy, on Eliquis. 4. Medical management for opioid medications. PLAN: 1. We discussed treatment options with the patient today. The patient is not finding epidurals or sacroiliac joint injections are beneficial more than a few days. He is requesting to continue just on pain medications. I did explain to him that in the future if his pain increases, possibly Dr. Guillermo Barraza could trial a different type of injection of the facet joints since he does seem to have axial back pain, but there are risks involved by going off his Eliquis, which he uses for his arrhythmias. We will continue him with medications presently and he may call if he wishes to try another injection in the future. 2. We will increase his amount of medications given per month to 90 pills of hydrocodone 5/325 taking one tablet 3 times a day. These will be sent electronically by Dr. Guillermo Barraza for today and 4-week release. The patient instructed to call for an appointment when he fills his second medication. 3. The patient does have issues with constipation, does take Questran. We did talk about various foods that will help with helping control constipation as well. 4. The patient is seen in collaboration with Dr. Guillermo Barraza. <ELECTRONICALLY SIGNED> By: Barbie Chávez 12/06/19 1524 1307 Ruben Chávez /tesfaye
== END ==
LOC: PAIN 06:46
DX: M47.26 Other spondylosis with radiculopathy, lumbar region (principal); Z79.01 Long term (current) use of anticoagulants; Z79.891 Long term (current) use of opiate analgesic

== ENCOUNTER → 2020-01-08 | Outpatient (CLI) | payer OTHER, MEDICARE ==
[~2020-01-08] MED LIST changes: +HYDROCODON-ACE1 EAC8 PO; +SENOKOT8.6 MG PO
== END ==
LOC: SJCVCIMAG 07:40
PROVIDERS: ATTEND Internal Medicine Cardiovascular Disease
DX: Z45.02 Encounter for adjustment and management of automatic implantable cardiac defibrillator (principal); I11.9 Hypertensive heart disease without heart failure; R94.31 Abnormal electrocardiogram [ECG] [EKG]; I44.7 Left bundle-branch block, unspecified; I08.1 Rheumatic disorders of both mitral and tricuspid valves; I47.2 Ventricular tachycardia; I25.5 Ischemic cardiomyopathy; I48.0 Paroxysmal atrial fibrillation; I25.10 Atherosclerotic heart disease of native coronary artery without angina pectoris; E78.00 Pure hypercholesterolemia, unspecified; Z90.49 Acquired absence of other specified parts of digestive tract; Z79.899 Other long term (current) drug therapy; Z87.891 Personal history of nicotine dependence

== ENCOUNTER → 2020-01-31 | Outpatient (CLI) | payer OTHER, MEDICARE ==
[~2020-01-31] VITALS: Ht 182.9 cm; Wt 80.5 kg
[2020-01-31 13:00] VITALS: BP 137/75
--- NOTE | 2020-01-31 13:13 | NUR ---
Pain Clinic Assessment: 1. History of Osteoarthritis: SHOULDERS SPINE HIPS History of Rheumatoid Arthritis: NO 2. Height: 6 ft. 0 in. 182.9 cm. Weight: 177.4 lb. oz. 80.468 kg. Patient's BMI: 24.1 3. Vital Signs: BP: 137/75 Pulse: 68 Resp: 16 Temp: 02 Sat: 100 ECG Mon: 4. Pain Intensity: 6-9 5. Fall Risk: Dizziness: N Needs help standing or walking: Y Fallen in the last 3 months: N Fall risk comments: 6. Patient on Blood Thinner: EDUARDOIS 7. History of Hypertension: Y 8. Opioid Therapy greater than 6 weeks: Y Opiate Contract Signed: 9. Risk Assessment Tool Provided: 3-LOW 10. Functional Assessment Tool: 11. Recreational Drug Use: Never Drug Type: Tobacco Use: Never Smoker Tobacco Type: Amount or Packs/day: How Many Years: Alcohol Use: No Frequency: Quant:
--- NOTE | 2020-02-01 07:49 | HPC ---
[facility] [address] [place] [address] PAIN MANAGEMENT CONSULTATION Name: PANGUILLERMO CHAVEZ Room #: REG [facility] MKathryn.#: [id number] Admission: 01/31/20 Attend Phys: Barbie Chávez Discharge: Date of : [birth year] Report #: [id number] THIS REPORT FOR: cc: Juan David Romero MD, Eric K. MD Hocker,Barbie LOCO ~ CC: Guillermo Barraza MD DATE OF SERVICE: 01/31/2020 CHIEF COMPLAINT: Chronic low back pain with radiculopathy into his right hip. HISTORY OF PRESENT ILLNESS: This is an 89-year-old very pleasant gentleman here for medication refill along with his son stating his pain score is 6/10 in the morning and as high as 9/10 later in the day. He reports that his pain is mostly centrally located in his lower back, though he does have bilateral hip pain. He reports that the epidural steroid injection that Dr. Guillermo Barraza performed in October gave him very minimal relief. He has been taking the pain pills that we prescribed to him 3 times a day, but he finds that these do not last as long as he had hoped despite increasing them to 3 times a day at his last visit. He states his pain is worse in the evening and again in the morning until he is moving. He has no problems with constipation as a result of his opioid medications due to the fact that he does have some GI issues and he feels that the opioids have helped reduce his diarrhea. Today he is here requesting a possible increase in medications or opioid rotation. ALLERGIES: PENICILLIN, CORN, TOMATOES. CURRENT LIST OF MEDICATIONS: Senokot, hydrocodone 5/325 t.i.d., Questran, propranolol, amiodarone, Aspercreme, Tylenol Extra Strength, Mucinex, loratadine, Flovent, Singulair, Eliquis, and Zocor. PQRS: 1. 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 Denies any rheumatoid arthritis. 2. Height is 6 feet, weight is 177, BMI is 24. 3. Vital signs 137/75, pulse is 68, respirations 16, oxygen sat is 100. 4. Pain score 6-9/10. 5. Fall risk. Denies dizziness. Does use a walker for assistance with ambulation and has not fallen in the last 3 months. 6. He is on Eliquis as well as medications for hypertension. Opioid therapy is greater than 6 weeks. His risk assessment tool is low. Functional assessment is 30/70. 7. Recreational drug use, he denies. He is not a smoker and does not drink alcohol. [address] [address] PAIN MANAGEMENT CONSULTATION Name: GUILLERMO OLIVER Room #: REG BENJAMIN Scanlon#: [id number] Admission: 01/31/20 Attend Phys: Barbie Chávez Discharge: Date of : [birth year] Report #: [id number] According to the prescription monitoring system, the patient is filling appropriately, filling medications in a timely fashion. His morphine mEq per day is 15. PHYSICAL EXAMINATION: GENERAL: This is alert and orientated, very pleasant 89-year-old gentleman who appears his stated age, placing his current pain score from 6-9/10. HEENT: Normocephalic, atraumatic. Mucous membranes are moist. MUSCULOSKELETAL: He has a slow antalgic gait, uses a walker at all times. He has pain in his axial low back with radicular symptoms into his hips bilaterally. Straight leg raising is negative. Lower extremity strength is 5/5 with good sensation. IMPRESSION: 1. Low back pain with spondylosis. 2. Lumbar radiculopathy. 3. Anticoagulation therapy on Eliquis. 4. Medical management for opioid medications. PLAN: 1. We discussed treatment options with the patient today. The patient is has end of dose failure. He believes that the medicince should last all day. He was not understanding that they are not a 24-hour pill. I explained to him they are short-acting medications, lasting 4-6 hours and described the difference between short-acting and long-acting opioid medications. The patient currently is on a low dose of opioids. I believe that he may benefit from a slightly stronger opioid of hydrocodone 7.5 and to trial this three times a day to see if this is more beneficial in controlling his pain. The patient is agreeable with this plan. He does take supplemental Tylenol one time throughout the day, but not on a daily basis. 2. We did discuss with the patient and son if this small increase is not beneficial, we may transition him to a Butrans patch, starting at 5 mcg. This patch he can change once a week, which the patient thought was like a nice option or fentanyl patch at 12 mcg changing every 3 days. 3. Scripts sent today for hydrocodone 7.5/325, #90 for 2 months. The patient is to call at the end of the first month, if his pain has not improved and we will set an appointment up and further discuss long-acting opioids. The patient's care discussed in collaboration with Dr. Guillermo Barraza who agreed with the plan. <ELECTRONICALLY SIGNED> By: Barbie Chávez 02/01/20 0749 [id number] [id number] Barbie Chávez /tesfaye
== END ==
LOC: PAIN 07:34
DX: M47.26 Other spondylosis with radiculopathy, lumbar region (principal); M25.551 Pain in right hip; F11.20 Opioid dependence, uncomplicated; Z88.0 Allergy status to penicillin; Z88.8 Allergy status to other drugs, medicaments and biological substances; Z91.018 Allergy to other foods; Z79.899 Other long term (current) drug therapy

== ENCOUNTER → 2020-04-03 | Outpatient (CLI) | payer OTHER, MEDICARE ==
[~2020-04-03] VITALS: Ht 182.9 cm; Wt 79.6 kg
[2020-04-03 11:02] VITALS: BP 123/75
--- NOTE | 2020-04-03 11:09 | NUR ---
Pain Clinic Assessment: 1. History of Osteoarthritis: SHOULDERS SPINE HIPS History of Rheumatoid Arthritis: NO 2. Height: 6 ft. 0 in. 182.9 cm. Weight: 175.4 lb. oz. 79.561 kg. Patient's BMI: 23.8 3. Vital Signs: BP: 123/75 Pulse: 87 Resp: 18 Temp: 02 Sat: 96 ECG Mon: 4. Pain Intensity: 7 5. Fall Risk: Dizziness: N Needs help standing or walking: N Fallen in the last 3 months: N Fall risk comments: 6. Patient on Blood Thinner: MARNIEQUIS 7. History of Hypertension: Y 8. Opioid Therapy greater than 6 weeks: Y Opiate Contract Signed: 9. Risk Assessment Tool Provided: 3-LOW 10. Functional Assessment Tool: 11. Recreational Drug Use: Never Drug Type: Tobacco Use: Never Smoker Tobacco Type: Amount or Packs/day: How Many Years: Alcohol Use: No Frequency: Quant:
--- NOTE | 2020-04-08 13:59 | HPC ---
[facility] [address] [address] PAIN MANAGEMENT CONSULTATION Name: GUILLERMO OLIVER Room #: REG [facility] M..#: [id number] Admission: 04/03/20 Attend Phys: Barbie Chávez Discharge: Date of : [birth year] Report #: [id number] THIS REPORT FOR: cc: Juan David Romero MD, Eric K. MD Hocker,Barbie LOCO ~ CC: Guillermo Barraza MD DATE OF SERVICE: 04/03/2020 CHIEF COMPLAINT: Chronic low back pain with radiculopathy. HISTORY OF PRESENT ILLNESS: This is a very pleasant 89-year-old gentleman who returns to the pain clinic to discuss his opioid medications. At our last visit, we did increase the strength of his hydrocodone from 5/325 to 7.5/325. The patient finds that this is beneficial on most days. He is finding more relief than he had in the past. Despite rating his pain score of 7/10 today, he does feel that it is working quite well. He does require occasional Tylenol Extra Strength throughout the day, but not on a daily basis. The patient's pain is located in his lower back that radiates into his hips, worse with standing and walking. He does use a walker at all times. He states that sitting and lying down and his medications have been beneficial. He denies any problems with constipation, though he does have Senokot that he takes on an as needed basis. Overall, he feels like he is doing quite well with his current regimen. ALLERGIES: PENICILLIN, CORN, TOMATOES. CURRENT LIST OF MEDICATIONS: Hydrocodone 7.5/325, Senokot, Questran, Inderal, amiodarone, Singulair, Eliquis, and Zocor. PQRS: 1. 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 Denies rheumatoid arthritis. 2. Height is 6 feet, weight is 174, BMI is 23. 3. Vital signs, 123/75, pulse is 87, respirations 18, oxygen sat is 96. Pain score is 7/10. 4. He denies dizziness. Uses a walker at all times and has not fallen in the last 3 months. The patient is on Eliquis as well as medicines for hypertension. 5. Opioid therapy is greater than 6 weeks. We will put an opioid contract for him to sign. His risk assessment tool is low. Functional assessment is 30/70. 6. Recreational drug use, he denies. He is not a smoker and does not drink alcohol. According to the prescription monitoring system, the patient has filled appropriately in a timely fashion. His morphine milligrams equivalent per day is [address] [address] PAIN MANAGEMENT CONSULTATION Name: GUILLERMO OLIVER Room #: REG BENJAMIN Scanlon#: [id number] Admission: 04/03/20 Attend Phys: Barbie Chávez Discharge: Date of : [birth year] Report #: [id number] PHYSICAL EXAMINATION: GENERAL: This is alert and orientated 89-year-old gentleman who appears younger than his stated age. He is well-developed, well-nourished, placing his current pain score at 7/10. HEENT: Normocephalic, atraumatic. Extraocular eye muscles are intact. He is wearing a mask. MUSCULOSKELETAL: He has pain in his low back that does radiate into his bilateral hips. Straight leg raising is negative. His lower extremity strength is 5/5. Does use a walker at all times. He has a slow antalgic gait. IMPRESSION: 1. Low back pain with spondylosis. 2. Lumbar radiculopathy. 3. Anticoagulation therapy on Eliquis. 4. Medical management for opioid medications. We reviewed the fact that opiate medications are being used to provide analgesia adequate to support activities of daily living, not attempting to achieve a specific pain score on the 0-10 Visual Analog Scale. The current opiate medications are providing sufficient analgesia to allow the patient to participate in activities of daily living. The patient is not exhibiting any aberrant behavior suggestive of drug diversion. The patient is not having any adverse reactions to medications. The patient is not suffering from daytime somnolence or mental acuity changes. The patient is managing opiate-induced constipation with appropriate uqxy-pnn-vsiuxma agents and dietary considerations. The patient was counseled on concern for caution with operating a motor vehicle while using opiate medications. PLAN: 1. We discussed treatment options with the patient today. The patient feels that the change in his medication has been beneficial, at times supplementing Tylenol. We will continue him on hydrocodone 7.5/325 three times a day, written prescription for today and 4 weeks supply. 2. On the next visit, we will have him sign an opioid agreement. I do not see one on the chart and he has been coming for several months. We do need to have that signed, though I do not believe he will try to seek to have medications filled elsewhere. 3. The patient seen today in collaboration with Dr. Wilmar Guzman. <ELECTRONICALLY SIGNED> By: Barbie Chávez 04/08/20 1359 1134 1246 Barbie Chávez /nt
== END ==
LOC: PAIN 06:46
PROVIDERS: ATTEND Clinical Nurse Specialist Adult Health
DX: M47.26 Other spondylosis with radiculopathy, lumbar region (principal); Z79.01 Long term (current) use of anticoagulants; F11.20 Opioid dependence, uncomplicated; Z79.899 Other long term (current) drug therapy

== ENCOUNTER 2020-04-25 02:15 | Emergency (ER) | payer OTHER, MEDICARE ==
[~2020-04-25] VITALS: Ht 182.9 cm; Wt 78.2 kg
[2020-04-25 02:41] LABS: ABSOLUTE NEUTROPHILS 3.6 thou/uL (1.4-8.2); BASOPHILS 0.7 % (0.0-2.0); EOSINOPHILS 2.4 % (0.0-3.0); HEMATOCRIT 38.1 % (42.0-52.0); HEMOGLOBIN 12.4 gm/dL (14.0-18.0); LYMPHOCYTES 31.8 % (24.0-44.0); MCH 31.9 pg (26.0-34.0); MCHC 32.6 g/dL (28.0-37.0); MCV 97.9 fL (80.0-100.0); MONOCYTES 9.4 % (1.0-8.0); PLATELET COUNT 139 thou/uL (150-400); POLYS 55.7 % (36.0-66.0); RBC 3.89 mil/uL (4.50-6.00); RDW 14.9 % (10.5-14.5); WBC 6.4 thou/uL (4.0-11.0)
[2020-04-25 02:42] LABS: ANION GAP 9 mmol/L (7-16); BUN 20 mg/dL (7-18); CALCIUM 8.3 mg/dL (8.5-10.1); CHLORIDE 104 mmol/L (98-107); CO2 26 mmol/L (21-32); CREATININE 1.5 mg/dL (0.7-1.3); GLUCOSE 102 mg/dL (74-106); POTASSIUM 4.2 mmol/L (3.5-5.1); SODIUM 139 mmol/L (136-145)
[2020-04-25 02:52] LABS: ALBUMIN 3.2 g/dL (3.4-5.0); SGOT 22 U/L (15-37); SGPT 25 U/L (30-65); TOTAL BILIRUBIN 0.6 mg/dL (0.2-1.0); TOTAL PROTEIN 5.8 g/dL (6.4-8.2); TROPONIN-I <0.06 ng/mL (<0.06)
[2020-04-25 03:44] LABS: URINE BILIRUBIN 1+ (Negative); URINE BLOOD 3+ (Negative); URINE CLARITY CLOUDY; URINE COLOR BROWN; URINE GLUCOSE-RANDOM* NEGATIVE (Negative); URINE KETONES NEGATIVE (Negative); URINE LEUKOCYTES-REFLEX NEGATIVE (Negative); URINE NITRITE-REFLEX NEGATIVE (Negative); URINE PROTEIN (DIPSTICK) 2+ (Negative); URINE UROBILINOGEN 0.2 E.U./dl (0.2-1.0)
[2020-04-25 03:50] LABS: BACTERIA-REFLEX None Seen /HPF (None Seen); CASTS None Seen /LPF (None Seen); CRYSTALS None Seen /LPF (None Seen); MUCUS 0-3 Light strn/LPF (None Seen); SQUAMOUS 0-3 Few /LPF (0-3); URINE RBC >20 Many /HPF (0-2); URINE WBC-REFLEX 0-5 Rare /HPF (0-5)
[2020-04-25 03:59] VITALS: BP 143/69
--- NOTE | 2020-04-25 09:04 | EKG ---
[facility] [address] [place] [address] ELECTROCARDIOGRAM REPORT Name: GUILLERMO OLIVER Room #: DEP [facility]..#: [id number] Admission: 04/25/20 Attend Phys: Discharge: 04/25/20 Date of : [birth year] Report #: [id number] THIS REPORT FOR: cc: Juan David Romero MD, Eric K. MD Lundgren, Craig H. MD [facility] THIS REPORT FOR: //name// [facility] ED Test Date: 2020-04-25 Test Time: 02:22:27 Pat Name: GUILLERMO OLIVER Department: Room: Gender: Binder Chainstitch: [place] [id number] : 1930 Requested By: Campos Lao Order Number: [id number] MD: Hood Fernandez Measurements Intervals [place] Rate: 115 P: SC: QRS: 67 QRSD: 194 T: 261 QT: 403 QTc: 558 Interpretive Statements Wide-complex tachycardia IVCD, consider atypical LBBB Compared to ECG 07/26/2019 20:37:15 Wide-complex tachycardia is now present Electronically Signed On 04-25-2020 9:04:05 CDT by Hood Fernandez [email or web address] <ELECTRONICALLY SIGNED> By: Hood Fernandez MD, [facility] 04/25/20 0904 1 1 Hood Fernandez MD, [facility] /EPI
--- NOTE | 2020-04-25 09:05 | EKG ---
[facility] [address] [place] [address] ELECTROCARDIOGRAM REPORT Name: GUILLERMO OLIVER Room #: DEP M.R.#: [id number] Admission: 04/25/20 Attend Phys: Discharge: 04/25/20 Date of : [birth year] Report #: [id number] THIS REPORT FOR: cc: Juan David Romero MD, Eric K. MD Lundgren, Craig H. MD [facility] ~ THIS REPORT FOR: //name// [facility] ED Test Date: 2020-04-25 Test Time: 04:32:18 Pat Name: GUILLERMO OLIVER Department: Room: Gender: Mosaic Technician: [place] [id number] : 1930 Requested By: Campos Lao Order Number: [id number] MD: Hood Fernandez Measurements Intervals [place] Rate: 68 P: NE: 353 QRS: 106 QRSD: 155 T: -37 QT: 483 QTc: 514 Interpretive Statements Atrial pacing, ventricular sensing RBBB and LPFB Compared to ECG 04/25/2020 02:22:27 Wide-complex tachycardia is no longer present Electronically Signed On 04-25-2020 9:05:33 CDT by Hood Fernandez [email or web address] <ELECTRONICALLY SIGNED> By: Hood Fernandez MD, FACC 04/25/20 0905 0432 0432 Hood Fernandez MD, [facility] /EPI
== END 2020-04-25 05:08 | disposition home or self-care (01) ==
LOC: ER 02:15
PROVIDERS: Emergency Medicine
DX: R53.1 Weakness (principal); I25.2 Old myocardial infarction; Z95.0 Presence of cardiac pacemaker; Z90.49 Acquired absence of other specified parts of digestive tract; Z79.899 Other long term (current) drug therapy; Z88.0 Allergy status to penicillin; Z91.018 Allergy to other foods

== ENCOUNTER → 2020-04-30 | Outpatient (CLI) | payer OTHER, MEDICARE | LOC: SJCVC 13:32 → SJCVCIMAG 13:32 | PROVIDERS: ATTEND Internal Medicine Cardiovascular Disease | DX: Z45.02 Encounter for adjustment and management of automatic implantable cardiac defibrillator (principal); I08.3 Combined rheumatic disorders of mitral, aortic and tricuspid valves; R94.31 Abnormal electrocardiogram [ECG] [EKG]; I45.10 Unspecified right bundle-branch block; I47.2 Ventricular tachycardia; I25.5 Ischemic cardiomyopathy; I25.10 Atherosclerotic heart disease of native coronary artery without angina pectoris; I13.10 Hypertensive heart and chronic kidney disease without heart failure, with stage 1 through stage 4 chronic kidney disease, or unspecified chronic kidney disease; N18.3 Chronic kidney disease, stage 3 (moderate); E78.00 Pure hypercholesterolemia, unspecified; I65.23 Occlusion and stenosis of bilateral carotid arteries; I42.9 Cardiomyopathy, unspecified; I48.0 Paroxysmal atrial fibrillation; D68.59 Other primary thrombophilia; Z95.810 Presence of automatic (implantable) cardiac defibrillator; Z79.899 Other long term (current) drug therapy; Z87.891 Personal history of nicotine dependence ==

== ENCOUNTER → 2020-05-29 | Outpatient (CLI) | payer OTHER, MEDICARE ==
[~2020-05-29] MED LIST changes: +HYDROCODONE-AP1 EA11 PO; +MEXILETINE HCL200 M1 PO
== END ==
LOC: SJCVC 11:22
PROVIDERS: ATTEND Internal Medicine Cardiovascular Disease
DX: R94.31 Abnormal electrocardiogram [ECG] [EKG] (principal); I45.10 Unspecified right bundle-branch block; I47.2 Ventricular tachycardia; I48.0 Paroxysmal atrial fibrillation; I25.10 Atherosclerotic heart disease of native coronary artery without angina pectoris; Z95.810 Presence of automatic (implantable) cardiac defibrillator; Z79.899 Other long term (current) drug therapy; Z87.891 Personal history of nicotine dependence

== ENCOUNTER → 2020-06-12 | Outpatient (CLI) | payer OTHER, MEDICARE ==
[~2020-06-12] VITALS: Ht 182.9 cm; Wt 77.4 kg
[2020-06-12 12:42] VITALS: BP 131/70
--- NOTE | 2020-06-12 12:59 | NUR ---
Pain Clinic Assessment: 1. History of Osteoarthritis: SHOULDERS SPINE HIPS History of Rheumatoid Arthritis: NO 2. Height: 6 ft. 0 in. 182.9 cm. Weight: 170.6 lb. oz. 77.384 kg. Patient's BMI: 23.1 3. Vital Signs: BP: 131/70 Pulse: 67 Resp: 16 Temp: 02 Sat: 99 ECG Mon: 4. Pain Intensity: 6-7 5. Fall Risk: Dizziness: N Needs help standing or walking: Y Fallen in the last 3 months: N Fall risk comments: 6. Patient on Blood Thinner: EDUARDOIS 7. History of Hypertension: Y 8. Opioid Therapy greater than 6 weeks: Y Opiate Contract Signed: 9. Risk Assessment Tool Provided: 3-LOW 10. Functional Assessment Tool: 11. Recreational Drug Use: Never Drug Type: Tobacco Use: Never Smoker Tobacco Type: Amount or Packs/day: How Many Years: Alcohol Use: No Frequency: Quant:
--- NOTE | 2020-06-13 07:43 | HPC ---
[facility] [place] [address] [place] [address] PAIN MANAGEMENT CONSULTATION Name: GUILLERMO OLIVER Room #: REG [facility] M..#: [id number] Admission: 06/12/20 Attend Phys: Barbie Chávez Discharge: Date of : [birth year] Report #: [id number] THIS REPORT FOR: cc: Juan David Romero MD, Eric K. MD Hocker,Barbie LOCO ~ CC: Guillermo Barraza MD DATE OF SERVICE: 06/12/2020 CHIEF COMPLAINT: Chronic low back pain with radiculopathy. HISTORY OF PRESENT ILLNESS: As you know, this is an 89-year-old gentleman who is followed by the pain clinic for his chronic ongoing low back pain that does radiate into his hips. Today, he is reporting a pain score of 6-7, which is elevated compared to his previous visits. He states that the medications are not working as well. He feels that they start to wear off after about 4 hours and has been taking Tylenol a couple times a day as a result. He was wondering if there are any different medications or an increase that he may have today. The patient reports his pain is worse with any walking or standing up. As soon as he ambulates, his pain is across to his lower back within a few minutes. He feels that sitting and lying down are beneficial. He denies any problems with sedation as a result of his opioids or constipation issues. His son is here present with him today. ALLERGIES: PENICILLIN, CORN, TOMATO. CURRENT LIST OF MEDICATIONS: Mexiletine 200 mg b.i.d., hydrocodone 7.5/325 t.i.d., Questran, Inderal, amiodarone, Aspercreme, Tylenol Extra Strength, Mucinex, loratadine, Singulair, Eliquis, Zocor. PQRS: 1. 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 Denies rheumatoid arthritis. 2. Height is 6 feet, weight is 170, BMI is 23. 3. Vital signs 131/70, pulse is 67, respirations 16, oxygen sat is 99. 4. Pain score is 6-7. 5. Denies dizziness, does use a walker for ambulation, has not fallen in the last 3 months. The patient is on Eliquis as well as medicines for hypertension. 6. Opioid therapy is greater than 6 weeks. He does have an opioid signed contract on the chart. Risk assessment is low. Functional assessment is 30/70. 7. Recreational drug use, he denies. He is not a smoker and does not drink alcohol. According to the prescription monitoring system, the patient is filling [address] [address] PAIN MANAGEMENT CONSULTATION Name: GUILLERMO OLIVER Room #: REG BENJAMIN Scanlon#: [id number] Admission: 06/12/20 Attend Phys: Barbie Chávez Discharge: Date of : 08/14/[birth year] Report #: [id number] appropriately for his medications. His current level according to the CDC guidelines is 22 morphine milliequivalents per day. PHYSICAL EXAMINATION: GENERAL: This is alert and orientated 89-year-old gentleman who is well-developed, well-nourished. He is placing his current pain score at 6-7. HEENT: Normocephalic, atraumatic. Extraocular eye muscles are intact. He is wearing a mask. MUSCULOSKELETAL: Pain radiates across his lumbosacral region into his bilateral hips. It is increased with any weightbearing activities. Straight leg raising is negative. His lower extremity strength is symmetrical at 5/5 with good sensation from L1-S2. He uses a walker at all times. IMPRESSION: 1. Low back pain with spondylosis. 2. Lumbar radiculopathy. 3. Anticoagulation therapy on Eliquis. 4. Medical management, scheduled opioid medications. We reviewed the fact that opiate medications are being used to provide analgesia adequate to support activities of daily living, not attempting to achieve a specific pain score on the 0-10 Visual Analog Scale. The current opiate medications are providing sufficient analgesia to allow the patient to participate in activities of daily living. The patient is not exhibiting any aberrant behavior suggestive of drug diversion. The patient is not having any adverse reactions to medications. The patient is not suffering from daytime somnolence or mental acuity changes. The patient is managing opiate-induced constipation with appropriate [id number] agents and dietary considerations. The patient was counseled on concern for caution with operating a motor vehicle while using opiate medications. A physical exam was performed and the patient's functional status was evaluated. All patients with back pain were advised against the bed rest greater than 4 days and were advised to return to normal activities. Pain score assessment was noted and the treatment plan was reviewed with the patient. All current medications, both prescribed and OTC were reviewed and reconciled on the electronic medical record. Tobacco screening was accomplished and smoking cessation was advised when indicated. BMI was noted and diet/exercise modification was recommended for all patients following outside normal parameters. I reviewed with the patient today their responsibilities to safeguard prescription medications, reviewed their responsibility to utilize medications only as prescribed by the physician. They are to seek and receive pain medications only from 1 physician group ([facility]). They are to use 1 pharmacy and keep the clinic informed if they change pharmacies. Their [address] [address] PAIN MANAGEMENT CONSULTATION Name: BENITOGUILLERMO [facility] [id number] Admission: 06/12/20 Attend Phys: Barbie Chávez Discharge: Date of : 08/14/30 Report #: [id number] responsibilities include making followup visits in a timely fashion and to avoid abrupt discontinuation of medication usage. Their responsibilities further include bringing their medications (bottles from the pharmacy with residual pills) to the visit for possible confirmation of pill counts and the patient understands it is their responsibility to submit to random drug screens to ensure both that the medications prescribed are present, and that no other controlled substances are present. All prescriptions provided today were generated electronically. PLAN: 1. We discussed treatment options with the patient today. The patient reports he is having end of dose failure from his hydrocodone 7.5/325. He feels that 3 times a day is not quite enough. He has been supplementing with Tylenol. I did discuss this with Dr. Guillermo Barraza. We considered a Butrans patch, which may be more beneficial to keep his pain more evenly throughout the day, but the conversion factor will be quite significantly higher than his current dose; therefore, it was decided we would increase his hydrocodone to 4 tablets a day allowing the patient to take 1 tablet every 6 hours. The patient is agreeable with this. 2. We will have Dr. Guillermo Barraza send the 2 prescriptions for hydrocodone to his local pharmacy and the patient will return in 2 months, but will notify us if his pain continues to be problematic. 3. The patient seen today in collaboration with Dr. Guillermo Barraza. <ELECTRONICALLY SIGNED> By: Barbie Chávez 06/13/20 0743 [id number] 1526 Barbie Chávez /nt
== END ==
LOC: PAIN 06:44
PROVIDERS: ATTEND Clinical Nurse Specialist Adult Health
DX: M47.26 Other spondylosis with radiculopathy, lumbar region (principal); F11.20 Opioid dependence, uncomplicated; G89.29 Other chronic pain; Z88.8 Allergy status to other drugs, medicaments and biological substances; Z79.01 Long term (current) use of anticoagulants; Z79.899 Other long term (current) drug therapy

== ENCOUNTER 2020-07-14 04:02 | Emergency (ER) | payer OTHER, MEDICARE ==
[~2020-07-14] VITALS: Ht 182.9 cm; Wt 81.7 kg
--- NOTE | ~2020-07-14 | EMS ---
[address] [address] EMS Patient Care Report Name: GUILLERMO OLIVER Room #: DEP ADRIEL Scanlon#: [id number] Admission: 07/14/20 Attend Phys: Discharge: 07/14/20 Date of : 08/14/[birth year] Report #: [id number] THIS REPORT FOR: //name// Report Transmitted: 07/14/2020 16:38 EMS Care Summary [facility] Incident [id number] @ 07/14/2020 03:15 Incident Location [address] [place] [address] Patient GUILLERMO OLIVER Male, 89 Years 1930 Patient Address [address] [place] [address] Patient History Pacemaker/AICD,Cardiac - Stent,Abdominal Aortic Aneurysm,Gallstone, Patient Allergies Penicillin allergy, Patient Medications Eliquis, Propranolol, Simvastatin, Hydrocodone, Amiodarone, Fluticasone, Chief Complaint "Passed out going to the bathroom" Disposition Transported No Lights/[place] Dispatch Reason Unconscious/Fainting Transported To [facility] Narrative [facility] dispatched for a male that had a syncopal episode on the toilet. Pts family stated that he has been constipated for a few days and was pushing very hard while attempting to have a bowel movement. [address] [address] EMS Patient Care Report Name: GUILLERMO OLIVER Room #: DEP ER Ghislaine#: [id number] Admission: 07/14/20 Attend Phys: Discharge: 07/14/20 Date of : [birth year] Report #: [id number] On scene found the pt sitting in the toilet. Pt was AO4. Airway was patent and free from obstruction. Breathing was non labored with bilateral chest rise and fall. Skin was pink warm and dry. Pt stated that his legs were too weak to walk to the cot and an a stairchair was brought in for assistance. Pt was assisted to his feet and the chair was positioned behind him. Pt was secured and taken to the cot. Pt was assisted to his feet and sat on the cot. Pt secured to cot and taken to ambulance. In the ambulance, an IV was initiated for fluids. Pt was placed in semi fowlers for comfort. Pt stated that he had no pain. Pt was taken to [facility] per his request. Pt remained AO4. airway was clear and breathing was within normal limits. Skin was pink warm and dry. Pt was taken to room 8 on arrival and verbal report was given to nursing staff. Pt was moved from the cot to the bed by EMS lifting the sheet. Pt signed for himself and EMS returned to service. Initial Vitals @03:25P: 88,R: 12,BP: 55/34,GCS: 15,SpO2: 91,Revised Trauma: 10,CA Suspected: false @03:55P: 83,R: 16,BP: 105/64,GCS: 15,SpO2: 98,Revised Trauma: 12, Assessments @03:25MENTAL:Person Oriented,Time Oriented,Place Oriented,Event Oriented,SKIN:HEENT:Head/Face: No Abnormalities,Eyes: No Abnormalities,Neck/Airway: No Abnormalities,LUNG SOUNDS:General: No Abnormalities,ABDOMEN:General: No Abnormalities,PELVIS//GI:No Abnormalities,EXTREMITIES:Left Arm: No Abnormalities,Right Arm: No Abnormalities,Left Leg: No Abnormalities,Right Leg: No Abnormalities,PULSE:NEURO:No Abnormalities,@03:55MENTAL:Person Oriented,Event Oriented,Time Oriented,Place Oriented,SKIN:HEENT:Head/Face: No Abnormalities,Eyes: No Abnormalities,LUNG SOUNDS:General: No Abnormalities,ABDOMEN:General: No Abnormalities,PELVIS//GI:EXTREMITIES:PULSE:NEURO:No Abnormalities, Impression Syncope / Fainting Procedures @03:25ALS AssessmentResponse: UnchangedSucceeded@03:55ALS AssessmentResponse: UnchangedSucceeded@03:35Normal Saline (.9% NaCl) 1000cc (18 ga) Site: Forearm-LeftResponse: ImprovedSucceeded Timeline 03:13,Call Received 03:13,Psap Call 03:15,Dispatched [address] [address] EMS Patient Care Report Name: GUILLERMO OLIVER Room #: DEP ADRIEL Scanlon#: [id number] Admission: 07/14/20 Attend Phys: Discharge: 07/14/20 Date of : [birth year] Report #: [id number] 03:17,En Route 03:21,On Scene 03:22,At Patient 03:25,BP: 55/34 M,PULSE: 88,RR: 12 R,SPO2: 91 Ox,ETCO2: ,BG: ,PAIN: ,GCS: 15, 03:25,ALS Assessment,Response: UnchangedSucceeded, 03:35,Normal Saline (.9% NaCl) 1000cc 18 ga Site: Forearm-Left,Response: ImprovedSucceeded, 03:36,Depart Scene 03:55,BP: 105/64 M,PULSE: 83,RR: 16 R,SPO2: 98 Ox,ETCO2: ,BG: ,PAIN: ,GCS: 15, 03:55,ALS Assessment,Response: UnchangedSucceeded, 03:57,At Destination 04:20,Call Closed Disclaimer v1.1 Copyright 2020 [employer] This EMS Care Summary contains data elements from the applicable legal record (which may be displayed differently). It is designed to provide pertinent information for the following purposes: continuity of care, clinical quality, and state data reporting. The complete legal record is available to ED staff and administrators of the receiving hospital in [employer]'s Patient Tracker. All data is provided "as is."
--- NOTE | ~2020-07-14 | EMS ---
[address] [address] EMS Patient Care Report Name: GUILLERMO OLIVER Room #: DEP ADRIEL Scanlon#: [id number] Admission: 07/14/20 Attend Phys: Discharge: 07/14/20 Date of : [birth year] Report #: [id number] THIS REPORT FOR: //name// Report Transmitted: 07/14/2020 15:37 EMS Care Summary [facility] Incident [id number] @ 07/14/2020 03:15 Incident Location [address] [place] [address] Patient GUILLERMO OLIVER Male, 89 Years 1930 Patient Address [address] [place] [address] Patient History Pacemaker/AICD,Cardiac - Stent,Abdominal Aortic Aneurysm,Gallstone, Patient Allergies Penicillin allergy, Patient Medications Eliquis, Propranolol, Simvastatin, Hydrocodone, Amiodarone, Fluticasone, Chief Complaint "Passed out going to the bathroom" Disposition Transported No Lights/[place] Dispatch Reason Unconscious/Fainting Transported To [facility] Narrative [facility] dispatched for a male that had a syncopal episode on the toilet. Pts family stated that he has been constipated for a few days and was pushing very hard while attempting to have a bowel movement. [facility] [address] [place] [address] EMS Patient Care Report Name: GUILLERMO OLIVER Room #: DEP ER Ghislaine#: [id number] Admission: 07/14/20 Attend Phys: Discharge: 07/14/20 Date of : [birth year] Report #: [id number] On scene found the pt sitting in the toilet. Pt was AO4. Airway was patent and free from obstruction. Breathing was non labored with bilateral chest rise and fall. Skin was pink warm and dry. Pt stated that his legs were too weak to walk to the cot and an a stairchair was brought in for assistance. Pt was assisted to his feet and the chair was positioned behind him. Pt was secured and taken to the cot. Pt was assisted to his feet and sat on the cot. Pt secured to cot and taken to ambulance. In the ambulance, an IV was initiated for fluids. Pt was placed in semi fowlers for comfort. Pt stated that he had no pain. Pt was taken to [facility] per his request. Pt remained AO4. airway was clear and breathing was within normal limits. Skin was pink warm and dry. Pt was taken to room 8 on arrival and verbal report was given to nursing staff. Pt was moved from the cot to the bed by EMS lifting the sheet. Pt signed for himself and EMS returned to service. Initial Vitals @03:25P: 88,R: 12,BP: 55/34,GCS: 15,SpO2: 91,Revised Trauma: 10,[place] Suspected: false @03:55P: 83,R: 16,BP: 105/64,GCS: 15,SpO2: 98,Revised Trauma: 12, Assessments @03:25MENTAL:Person Oriented,Time Oriented,Place Oriented,Event Oriented,SKIN:HEENT:Head/Face: No Abnormalities,Eyes: No Abnormalities,Neck/Airway: No Abnormalities,LUNG SOUNDS:General: No Abnormalities,ABDOMEN:General: No Abnormalities,PELVIS//GI:No Abnormalities,EXTREMITIES:Left Arm: No Abnormalities,Right Arm: No Abnormalities,Left Leg: No Abnormalities,Right Leg: No Abnormalities,PULSE:NEURO:No Abnormalities,@03:55MENTAL:Person Oriented,Event Oriented,Time Oriented,Place Oriented,SKIN:HEENT:Head/Face: No Abnormalities,Eyes: No Abnormalities,LUNG SOUNDS:General: No Abnormalities,ABDOMEN:General: No Abnormalities,PELVIS//GI:EXTREMITIES:PULSE:NEURO:No Abnormalities, Impression Syncope / Fainting Procedures @03:25ALS AssessmentResponse: UnchangedSucceeded@03:55ALS AssessmentResponse: UnchangedSucceeded@03:35Normal Saline (.9% NaCl) 1000cc (18 ga) Site: Forearm-LeftResponse: ImprovedSucceeded Timeline 03:13,Call Received 03:13,Psap Call 03:15,Dispatched [address] [address] EMS Patient Care Report Name: GUILLERMO OLIVER Room #: DEP ADRIEL Scanlon#: [id number] Admission: 07/14/20 Attend Phys: Discharge: 07/14/20 Date of : [birth year] Report #: [id number] 03:17,En Route 03:21,On Scene 03:22,At Patient 03:25,BP: 55/34 M,PULSE: 88,RR: 12 R,SPO2: 91 Ox,ETCO2: ,BG: ,PAIN: ,GCS: 15, 03:25,ALS Assessment,Response: UnchangedSucceeded, 03:35,Normal Saline (.9% NaCl) 1000cc 18 ga Site: Forearm-Left,Response: ImprovedSucceeded, 03:36,Depart Scene 03:55,BP: 105/64 M,PULSE: 83,RR: 16 R,SPO2: 98 Ox,ETCO2: ,BG: ,PAIN: ,GCS: 15, 03:55,ALS Assessment,Response: UnchangedSucceeded, 03:57,At Destination 04:20,Call Closed Disclaimer v1.1 Copyright 2020 [employer] This EMS Care Summary contains data elements from the applicable legal record (which may be displayed differently). It is designed to provide pertinent information for the following purposes: continuity of care, clinical quality, and state data reporting. The complete legal record is available to ED staff and administrators of the receiving hospital in [employer] Patient Tracker. All data is provided "as is."
[2020-07-14 04:22] LABS: ABSOLUTE NEUTROPHILS 3.9 thou/uL (1.4-8.2); BASOPHILS 0.5 % (0.0-2.0); EOSINOPHILS 1.1 % (0.0-3.0); HEMATOCRIT 37.4 % (42.0-52.0); HEMOGLOBIN 12.2 gm/dL (14.0-18.0); LYMPHOCYTES 24.6 % (24.0-44.0); MCHC 32.7 g/dL (28.0-37.0); MCV 97.9 fL (80.0-100.0); PLATELET COUNT 119 thou/uL (150-400); POLYS 63.8 % (36.0-66.0); RBC 3.82 mil/uL (4.50-6.00); RDW 14.9 % (10.5-14.5); WBC 6.1 thou/uL (4.0-11.0)
[2020-07-14 04:26] LABS: ANION GAP 11 mmol/L (7-16); BUN 25 mg/dL (7-18); CALCIUM 7.7 mg/dL (8.5-10.1); CHLORIDE 104 mmol/L (98-107); CO2 24 mmol/L (21-32); CREATININE 1.6 mg/dL (0.7-1.3); GLUCOSE 110 mg/dL (74-106); POTASSIUM 4.3 mmol/L (3.5-5.1); SODIUM 139 mmol/L (136-145)
[2020-07-14] MEDS ORDERED: ASPERCREME 1141.7 GM TOP (04:32)
[2020-07-14 04:35] LABS: MAGNESIUM 1.6 mg/dL (1.8-2.4); TROPONIN-I <0.06 ng/mL (<0.06)
[2020-07-14 05:45] VITALS: BP 141/56
--- NOTE | 2020-07-14 07:50 | EKG ---
[facility] [address] [place] [address] ELECTROCARDIOGRAM REPORT Name: GUILLERMO OLIVER Room #: DEP [facility]..#: [id number] Admission: 07/14/20 Attend Phys: Discharge: 07/14/20 Date of : 08/14/[birth year] Report #: [id number] THIS REPORT FOR: cc: Juan David Romero MD, Eric K. MD Lundgren, Craig H. MD [facility] ~ THIS REPORT FOR: //name// [facility] ED Test Date: 2020-07-14 Test Time: 04:07:11 Pat Name: GUILLERMO OLIVER Department: Room: Gender: Machine Sneller: [place] [id number] : 1930 Requested By: Eugene Munoz Order Number: [id number] MD: Hood Fernandez Measurements Intervals [place] Rate: 73 P: 95 TX: 56 QRS: 246 QRSD: 174 T: 42 QT: 507 QTc: 559 Interpretive Statements Atrial-ventricular dual-paced complexes No further analysis attempted due to paced rhythm Compared to ECG 04/25/2020 04:32:18 AV sequential pacing has replaced atrial pacing and ventricular sensing Electronically Signed On 07-14-2020 7:50:44 CDT by Hood Fernandez [email or web address] <ELECTRONICALLY SIGNED> By: Hood Fernandez MD, FAC 07/14/20 0750 6 6 Hood Fernandez MD, [facility] /EPI
== END 2020-07-14 05:45 | disposition home or self-care (01) ==
LOC: ER 04:02
PROVIDERS: Emergency Medicine
DX: R55 Syncope and collapse (principal); I25.2 Old myocardial infarction; Z95.0 Presence of cardiac pacemaker; Z90.49 Acquired absence of other specified parts of digestive tract; Z79.899 Other long term (current) drug therapy; Z88.0 Allergy status to penicillin; Z91.018 Allergy to other foods; Z91.09 Other allergy status, other than to drugs and biological substances